=== PATIENT | male | born 1935 | race Caucasian/White ===

== ENCOUNTER 2016-07-19 16:50 | Inpatient (IN) | payer MEDICARE ==
[2016-07-19] VITALS (7 sets, daily range): BP systolic 160–172; BP diastolic 71–80; PULSE 58–95; RESP 18–20; TEMP 97.8; O2SAT 93–97
[~2016-07-19 16:50] MED LIST: ACET325 PO; ARIC5TAB PO; ASPI1TAB7 PO; ATOR40TA49 PO; HYDR-2768 PO; LORA0.5T PO; METO25TA6 PO; MIRTA15 PO; RAMI5CAP36 PO; RISP1TAB2 PO
--- NOTE | 2016-07-19 16:55 | PD ---
HPI Chief Complaint: fall, hip pain Time Seen by Provider: 16:55 Travel History International Travel<30 days: No Contact w/Intl Traveler<30days: No Traveled to known affect area: No History of Present Illness HPI 80-year-old male came to the emergency room brought by EMS after sustaining a fall and unable to get up due to right hip pain. He is coming from detention. Patient has underlying dementia and is not a good historian. The history was obtained from EMS. He is awake and complaining of right hip pain. Vital signs were otherwise stable. Patient has his leg and flexed and externally rotated position. He looks uncomfortable. PFSH Past Medical History Narrative Medical List of his past medical, surgical, social and family history was reviewed from the nursing note. Cardiovascular Problems: Yes Cerebrovascular Accident: Yes Dementia: Yes Diminished Hearing: Yes Gastrointestinal Disorders: No Genitourinary: No Hypertension: Yes Neurologic: Yes (AMS, DEMENTIA, METABOLIC ENCEPHALOPATHY) Reproductive: No Respiratory: No Past Surgical History Other Surgery: Yes Social History Alcohol Use: No Tobacco Use: No Substance Use: No Allergies-Medications (Allergen,Severity, Reaction): Coded Allergies: No Known Allergies (Unverified , 07/19/16) Comments No known drug allergies. Reported Meds & Prescriptions Reported Meds & Active Scripts Active Reported Tylenol 8 Hour Arthritis (Acetaminophen) 650 Mg Tab 650 Mg PO Q4HR Risperidone 0.5 Mg Tab 0.5 Mg PO Q12HR Ramipril 5 Mg Cap 5 Mg PO DAILY Mirtazapine 15 Mg Tab 15 Mg PO HS Metoprolol Tartrate 25 Mg Tab 25 Mg PO DAILY Hydrochlorothiazide 25 Mg Tab 25 Mg PO DAILY Atorvastatin (Atorvastatin Calcium) 40 Mg Tab 40 Mg PO HS Ativan (Lorazepam) 0.5 Mg Tab 0.5 Mg PO DAILY PRN Lorazepam 0.5 Mg Tab 0.5 Mg PO DAILY PRN Aspirin 81 (Aspirin) 81 Mg Tabdr 81 Mg PO DAILY Meclizine (Meclizine HCl) 25 Mg Chew 25 Mg CHEW DIRECTED PRN Narrative Medication List of his home medications reviewed from the nursing note. Review of Systems Except as stated in HPI: all other systems reviewed are Neg Physical Exam Narrative GENERAL: Awake, alert, elderly, dementia, tearful and distressed SKIN: Warm and dry. HEAD: Atraumatic. Normocephalic. EYES: Pupils equal and round. No scleral icterus. No injection or drainage. ENT: No nasal bleeding or discharge. Mucous membranes pink and moist. NECK: Trachea midline. No JVD. CARDIOVASCULAR: Regular rate and rhythm. No murmur appreciated. RESPIRATORY: No accessory muscle use. Clear to auscultation. Breath sounds equal bilaterally. GASTROINTESTINAL: Abdomen soft, non-tender, nondistended. Hepatic and splenic margins not palpable. MUSCULOSKELETAL: Right leg flexed and externally rotated. Patient is refusing to straighten his knee. Distal pulses present. No clubbing. No cyanosis. No edema. NEUROLOGICAL: Awake and alert. No obvious cranial nerve deficits. Motor grossly within normal limits. Normal speech. PSYCHIATRIC: Appropriate mood and affect; insight and judgment normal. Data Data Last Documented VS Orders Electrocardiogram (07/19/16 16:55) Basic Metabolic Panel (Bmp) (07/19/16 16:55) Complete Blood Count With Diff (07/19/16 16:55) Prothrombin Time / Inr (Pt) (07/19/16 16:55) Chest, Single Ap (07/19/16 16:55) Ecg Monitoring (07/19/16 16:55) Bilateral Bp Monitoring (07/19/16 16:55) Iv Access Insert/Monitor (07/19/16 16:55) Oximetry (07/19/16 16:55) Oxygen Administration (07/19/16 16:55) Sodium Chloride 0.9% Flush (Ns Flush) (07/19/16 17:00) Hip, Uni(Ap&Lat) Wo Ap Pelvis (07/19/16 ) Morphine Inj (Morphine Inj) (07/19/16 17:00) Ondansetron Inj (Zofran Inj) (07/19/16 17:00) Knee, Ltd (1 Or 2vws) (07/19/16 ) Morphine Inj (Morphine Inj) (07/19/16 18:00) Admit Order (Ed Use Only) (07/19/16 18:13) Labs MDM Medical Decision Making Medical Screen Exam Complete: Yes Emergency Medical Condition: Yes Medical Record Reviewed: Yes Interpretation(s) Twelve-lead EKG was reviewed by me. Sinus rhythm, normal axis, nonspecific ST- T wave changes. Heart rate of 65 bpm. Differential Diagnosis Hip fracture, knee fracture, hip dislocation Narrative Course 5:20 PM awaiting for the x-ray and the blood test. I have ordered pain medications. 6 PM x-ray of the hip shows femoral neck fracture. I put a call out for the orthopedist as well as hospitalist for admission. Patient has been remedicated for pain. 6:20 PM spoke with the orthopedist. He wants patient to be NPO After midnight and in Patel's traction. Urine analysis has been ordered. Procedures EKG Prior to Arrival: No Physician Communication Physician Communication Dr. Mcnally Diagnosis Primary Impression: Fracture of femoral neck, closed Qualified Code: S72.001A - Closed fracture of neck of right femur, initial encounter Additional Impressions: Fall Qualified Code: W19.XXXA - Fall, initial encounter Dementia Qualified Code: F03.90 - Dementia without behavioral disturbance, unspecified dementia type Admitting Information Admitting Physician Requests: Admit Scripts Oxycodone-Acetaminophen 5-325 mg Tab1 Tab PO Q6H PRN (PAIN SCALE 5 TO 10) #50 TAB Prov:Srikanth Mcnally MD 07/20/16 Enoxaparin Inj (Lovenox Inj)40 Mg/0.4 Ml Syr40 Mg SQ Q24H #25 INJECTION Prov:Srikanth Mcnally MD 07/20/16 Brandee Spaulding MD Jul 19, 2016 16:55 Lymphocytes # (Auto) 1.2 TH/MM3 Monocytes # (Auto) 0.5 TH/MM3 Eosinophils # (Auto) 0.2 TH/MM3 Basophils # (Auto) 0.0 TH/MM3 CBC Comment DIFF FINAL Differential Comment Sodium Level 140 MEQ/L Potassium Level 4.0 MEQ/L Chloride Level 102 MEQ/L Carbon Dioxide Level 32.0 MEQ/L Anion Gap 6 MEQ/L Blood Urea Nitrogen 16 MG/DL Creatinine 1.01 MG/DL Estimat Glomerular Filtration 71 ML/MIN Rate Random Glucose 90 MG/DL Calcium Level 7.8 MG/DL [facility] Medical Decision Making Medical Screen Exam Complete: Yes Emergency Medical Condition: Yes Medical Record Reviewed: Yes Interpretation(s) Twelve-lead EKG was reviewed by me. Sinus rhythm, normal axis, nonspecific ST- T wave changes. Heart rate of 65 bpm. Differential Diagnosis Hip fracture, knee fracture, hip dislocation Narrative Course 5:20 PM awaiting for the x-ray and the blood test. I have ordered pain medications. 6 PM x-ray of the hip shows femoral neck fracture. I put a call out for the orthopedist as well as hospitalist for admission. Patient has been remedicated for pain. 6:20 PM spoke with the orthopedist. He wants an. After midnight in Patel's traction. Urine analysis has been ordered. Procedures EKG Prior to Arrival: No Physician Communication Physician Communication Dr. Mcnally Diagnosis Primary Impression: Fracture of femoral neck, closed Qualified Code: S72.001A - Closed fracture of neck of right femur, initial encounter Additional Impressions: Fall Qualified Code: W19.XXXA - Fall, initial encounter Dementia Qualified Code: F03.90 - Dementia without behavioral disturbance, unspecified dementia type Admitting Information Admitting Physician Requests: Admit Brandee Spaulding MD Jul 19, 2016 16:55
[2016-07-19] MEDS ORDERED: ONDANSETRON HCL 4 MG/2 ML VIAL IV PUSH ONE (17:00)
[2016-07-19] MEDS ORDERED: SODIUM CHLORIDE 0.9% FLUSH 10 ML FLUSH IVF PRN (17:00)
[2016-07-19] MEDS ORDERED: MORPHINE SULFATE 4 MG/ML INJ IV PUSH ONE ×2 (17:00→18:00)
[2016-07-19 17:22] LABS: AUTOMATED NEUTROPHIL # 3.2 TH/MM3 (1.8-7.7); BASOPHIL % 0.8 % (0.0-2.0); EOSINOPHIL # 0.2 TH/MM3 (0-0.4); EOSINOPHIL % 4.5 % (0.0-4.0); HEMATOCRIT 41.5 % (39.0-51.0); HEMO FLAGS DIFF FINAL; LYMPH % 22.4 % (9.0-44.0); LYMPHOCYTE # 1.2 TH/MM3 (1.0-4.8); MEAN CELL VOLUME 88.8 FL (80.0-100.0); MEAN CORPUSCULAR HEMOGLOBIN 31.2 PG (27.0-34.0); MEAN CORPUSCULAR HGB CONC 35.1 % (32.0-36.0); MONO % 10.4 % (0.0-8.0); NEUT % 61.9 % (16.0-70.0); PLATELET COUNT 183 TH/MM3 (150-450); RED BLOOD COUNT 4.67 MIL/MM3 (4.50-5.90); RED CELL DISTRIBUTION WIDTH 13.2 % (11.6-17.2); WHITE BLOOD COUNT 5.2 TH/MM3 (4.0-11.0)
--- NOTE | 2016-07-19 17:36 | RADRPT ---
EXAM DATE/TIME: 07/19/2016 17:17 [facility] COMPARISON: CHEST SINGLE AP, July 31, 2015, 14:11. INDICATIONS : Chest pain after fall. MEDICAL HISTORY : None. SURGICAL HISTORY : None. ENCOUNTER: Initial ACUITY: 1 day PAIN SCORE: 2/10 LOCATION: Bilateral chest FINDINGS: A single view of the chest demonstrates the lungs to be symmetrically, but under aerated without evid ence of mass, infiltrate or effusion. The cardiomediastinal contours are unremarkable. Osseous stru ctures are intact. Loss of the left acromiohumeral interval is characteristic of a chronic rotator cu ff injury. CONCLUSION: 1. Hypoinflation with no acute cardiac pulmonary process. 2. Probable chronic rotator cuff injury on the left. Ab Alvarado MD on July 19, 2016 at 17:33 Board Certified Radiologist. This report was verified electronically.
--- NOTE | 2016-07-19 17:37 | RADRPT ---
EXAM DATE/TIME: 07/19/2016 17:20 [facility] COMPARISON: No previous studies available for comparison. INDICATIONS : Right knee pain after fall. MEDICAL HISTORY : dementia. SURGICAL HISTORY : None. ENCOUNTER: Initial ACUITY: 1 day PAIN SCORE: 9/10 LOCATION: Right knee. FINDINGS: Two view examination of the right knee demonstrates no evidence of fracture or dislocation. Bony min eralization is normal. The suprapatellar soft tissues have a normal configuration. Mild osteoarthrit ic changes. CONCLUSION: Mild osteoarthritic changes with no acute fracture or effusion. Ab Alvarado MD on July 19, 2016 at 17:35 Board Certified Radiologist. This report was verified electronically.
--- NOTE | 2016-07-19 17:42 | RADRPT ---
EXAM DATE/TIME: 07/19/2016 17:20 [facility] COMPARISON: No previous studies available for comparison. INDICATIONS : Right hip pain after fall. MEDICAL HISTORY : dementia. SURGICAL HISTORY : None. ENCOUNTER: Initial ACUITY: 1 day PAIN SCORE: 9/10 LOCATION: Right hip. FINDINGS: There is an oblique lucency involving the basicervical portion of the right femoral neck. A fracture is not excluded. CT might be obtained for definitive assessment if clinically indicated. CONCLUSION: Abnormal exam appearance Jackson Obrien MD on July 19, 2016 at 17:38 Board Certified Radiologist. This report was verified electronically.
[2016-07-19] MEDS ORDERED: TYLE650T9 PO (18:01)
[2016-07-19] MEDS ORDERED: RAMI5CAP PO (18:01)
[2016-07-19] MEDS ORDERED: RISP0.5T2 PO (18:01)
[2016-07-19] MEDS ORDERED: MIRTA15 PO (18:01)
[2016-07-19] MEDS ORDERED: ATOR40TA16 PO (18:01)
[2016-07-19] MEDS ORDERED: HYDR25TA5 PO (18:01)
[2016-07-19] MEDS ORDERED: ASPI-110 PO (18:01)
[2016-07-19] MEDS ORDERED: METO25TA3 PO (18:01)
[2016-07-19] MEDS ORDERED: LORA-392 PO (18:01)
[2016-07-19] MEDS ORDERED: MECL25CH CHEW (18:01)
[2016-07-19] MEDS ORDERED: LORA-373 PO (18:01)
[2016-07-19] MEDS ORDERED: SODIUM CHLORIDE 0.9% FLUSH 10 ML FLUSH IV FLUSH PRN (18:30)
[2016-07-19] MEDS ORDERED: NALOXONE HCL 0.4 MG/ML AMP IV PRN (18:30)
[2016-07-19] MEDS ORDERED: ACETAMINOPHEN 325 MG TAB PO PRN (18:30)
[2016-07-19] MEDS ORDERED: HYDROmorphone HCL PF 1 MG/ML VIAL IV PUSH PRN (19:00)
[2016-07-19] MEDS: SODIUM CHLOR 0.9% 1000 ML INJ 1,000 ML IV SCH (19:11)
[2016-07-19] MEDS: oxyCODONE/ACETAMINOPHEN 5 MG/325 MG TAB PO PRN (19:12)
[2016-07-19 19:17] LABS: BLOOD, URINE NEG (NEG); GLUCOSE,URINE NEG (NEG); KETONE, URINE NEG (NEG); NITRITE,URINE NEG (NEG); URINE COLOR LIGHT-YELLOW (YELLW/STRAW)
[2016-07-19 19:18] LABS: COMMENT (UR) CATH-CULT NOT IND; CULTURE IF INDICATED CATH CULTURE NOT IND
[2016-07-19] MEDS ORDERED: HYDROmorphone HCL PF 1 MG/ML VIAL IV PUSH ONE (20:00)
[2016-07-19] MEDS ORDERED: ENOXAPARIN SODIUM 40 MG/0.4 ML SYRINGE SQ SCH (20:00)
[2016-07-19] MEDS: SODIUM CHLORIDE 0.9% FLUSH 10 ML FLUSH IV FLUSH SCH (20:17)
[2016-07-19] MEDS ORDERED: risperiDONE 0.5 MG TAB PO ONE (21:00)
[2016-07-19] MEDS ORDERED: LORazepam 2 MG/ML VIAL IV PUSH ONE (21:00)
[2016-07-19] MEDS ORDERED: MAGNESIUM HYDROXIDE SUSP 30 ML CUP PO PRN (21:00)
[2016-07-20 01:00] VITALS: BP 158/68; PULSE 68; RESP 18; O2SAT 94
[2016-07-20 05:00] VITALS: BP 161/67; PULSE 70; RESP 18; O2SAT 94
[2016-07-20] MEDS: oxyCODONE/ACETAMINOPHEN 5 MG/325 MG TAB PO PRN (05:00)
[2016-07-20] MEDS: SODIUM CHLOR 0.9% 1000 ML INJ 1,000 ML IV SCH (05:28)
[2016-07-20 07:06] VITALS: BP 124/60; PULSE 68; RESP 18; O2SAT 94
--- NOTE | 2016-07-20 08:00 | HHI.HP ---
History of Present Illness Primary Care Physician Ruddy Hubbard MD Admission Diagnosis femoral neck fracture, fall, dementia Diagnoses: (1) Ischemic Stroke (2) Impaired cognition (3) Impaired mobility and activities of daily living (4) Hypertension (5) DVT prophylaxis (6) Fall (7) Fracture of femoral neck, closed (8) Dementia History of Present Illness 80 Y CM. S/P FALL AT [facility]. PT CONFUSED AND UNABLE TO PROVIDE INFO. PT W OBVIOUS HIP DEFORMITY. FOUND W HIP FX BELOW. PLACED IN BUCKS TXN. SEEN BY FRANCINE YET THEY THEN CALLED ME FOR ADMIT PT OF MINE. D/W [facility]. PT IN [place] AND AGITATED BUT OVERALL AT BASELINE MENTATION. Review of Systems ROS Limitations: Clinical Condition, Altered Mental Status, Hearing Impaired, Poor Historian Past Family Social History Allergies: Coded Allergies: No Known Allergies (Unverified , 07/19/16) Past Medical History Past Medical History Narrative Medical Most of his past medical, surgical, social and family history was reviewed from the nursing note. Cardiovascular Problems: Yes Cerebrovascular Accident: Yes Dementia: Yes Diminished Hearing: Yes Gastrointestinal Disorders: No Genitourinary: No Hypertension: Yes Neurologic: Yes (AMS, DEMENTIA, METABOLIC ENCEPHALOPATHY) Reproductive: No Respiratory: No Past Surgical History Other Surgery: Yes Social History Alcohol Use: No Tobacco Use: No Substance Use: No Allergies-Medications Allergies-Medications (Allergen,Severity, Reaction): Coded Allergies: No Known Allergies (Unverified , 07/19/16) Comments No known drug allergies. Reported Meds & Prescriptions Reported Meds & Active Scripts Active Reported Tylenol 8 Hour Arthritis (Acetaminophen) 650 Mg Tab 650 Mg PO Q4HR Risperidone 0.5 Mg Tab 0.5 Mg PO Q12HR Ramipril 5 Mg Cap 5 Mg PO DAILY Mirtazapine 15 Mg Tab 15 Mg PO HS Metoprolol Tartrate 25 Mg Tab 25 Mg PO DAILY Hydrochlorothiazide 25 Mg Tab 25 Mg PO DAILY Atorvastatin (Atorvastatin Calcium) 40 Mg Tab 40 Mg PO HS Ativan (Lorazepam) 0.5 Mg Tab 0.5 Mg PO DAILY PRN Lorazepam 0.5 Mg Tab 0.5 Mg PO DAILY PRN Aspirin 81 (Aspirin) 81 Mg Tabdr 81 Mg PO DAILY Meclizine (Meclizine HCl) 25 Mg Chew 25 Mg CHEW DIRECTED PRN Active Ordered Medications Current Medications Medications (Trade) Dose Ordered Sig/Taty Route Start Time Stop Time Status Last Admin Sodium Chloride 2 ml 2 ml UNSCH PRN IVF 07/19/16 17:00 (NS 1000 ml Inj) 1,000 ml @ 100 mls/hr Q10H IV 07/19/16 18:22 07/20/16 05:28 (NS Flush) 2 ml BID IV FLUSH 07/19/16 21:00 (Tylenol) 650 mg Q4H PRN PO 07/19/16 18:30 (Milk Of Magnesia Liq) 30 ml Q12HR PRN PO 07/19/16 21:00 (Lovenox Inj) 40 mg Q24H SQ 07/19/16 20:00 07/19/16 20:16 (Narcan Inj) 0.4 mg UNSCH PRN IV 07/19/16 18:30 (Percocet 5-325 Mg) 1 tab Q6H PRN PO 07/19/16 20:00 07/20/16 05:00 (Dilaudid Pf Inj) 0.2 mg Q4H PRN IV PUSH 07/19/16 19:00 Physical Exam Vital Signs Vital Signs Date Time Temp Pulse Resp B/P Pulse Ox O2 Delivery O2 Flow Rate FiO2 07/20/16 07:06 68 18 124/60 94 Room Air 07/20/16 05:00 70 18 161/67 94 Room Air 07/20/16 01:00 68 18 158/68 94 Room Air 07/19/16 21:00 71 18 168/71 93 Room Air 07/19/16 19:28 95 18 172/77 96 Room Air 07/19/16 18:54 18 07/19/16 18:49 58 18 160/78 97 Room Air 07/19/16 18:39 97 21 07/19/16 18:08 64 18 160/78 97 Room Air 164/80 07/19/16 17:51 18 07/19/16 17:25 97.8 62 20 163/75 97 Room Air 07/19/16 17:25 97 Room Air 07/19/16 17:25 62 20 97 Room Air 07/19/16 17:15 97.8 62 18 163/75 97 Room Air Physical Exam GENERAL: This is a well-nourished, well-developed patient, in no apparent distress. SKIN: No rashes, ecchymoses or lesions. Cool and dry. HEAD: Atraumatic. Normocephalic. No temporal or scalp tenderness. EYES: Pupils equal round and reactive. Extraocular motions intact. No scleral icterus. No injection or drainage. ENT: Nose without bleeding, purulent drainage or septal hematoma. Throat without erythema, tonsillar hypertrophy or exudate. Uvula midline. Airway patent. NECK: Trachea midline. No JVD or lymphadenopathy. Supple, nontender, no meningeal signs. CARDIOVASCULAR: Regular rate and rhythm without murmurs, gallops, or rubs. RESPIRATORY: Clear to auscultation. Breath sounds equal bilaterally. No wheezes , rales, or rhonchi. GASTROINTESTINAL: Abdomen soft, non-tender, nondistended. No hepato-splenomegaly , or palpable masses. No guarding. MUSCULOSKELETAL: Extremities without clubbing, cyanosis, or edema. No joint tenderness, effusion, or edema noted. No calf tenderness. Negative Homans sign bilaterally. NEUROLOGICAL: Awake and alert. Cranial nerves II through XII intact. Motor and sensory grossly within normal limits. Five out of 5 muscle strength in all muscle groups. Normal speech. Laboratory Laboratory Tests Test 07/19/16 07/19/16 17:00 18:40 White Blood Count 5.2 Red Blood Count 4.67 Hemoglobin 14.6 Hematocrit 41.5 Mean Corpuscular Volume 88.8 Mean Corpuscular Hemoglobin 31.2 Mean Corpuscular Hemoglobin 35.1 Concent Red Cell Distribution Width 13.2 Platelet Count 183 Mean Platelet Volume 7.6 Neutrophils (%) (Auto) 61.9 Lymphocytes (%) (Auto) 22.4 Monocytes (%) (Auto) 10.4 Eosinophils (%) (Auto) 4.5 Basophils (%) (Auto) 0.8 Neutrophils # (Auto) 3.2 Lymphocytes # (Auto) 1.2 Monocytes # (Auto) 0.5 Eosinophils # (Auto) 0.2 Basophils # (Auto) 0.0 CBC Comment DIFF FINAL Differential Comment Prothrombin Time 11.0 Prothromb Time International 1.0 Ratio Sodium Level 140 Potassium Level 4.0 Chloride Level 102 Carbon Dioxide Level 32.0 Anion Gap 6 Blood Urea Nitrogen 16 Creatinine 1.01 Estimat Glomerular Filtration 71 Rate Random Glucose 90 Calcium Level 7.8 Urine Color LIGHT-YELLOW Urine Turbidity CLEAR Urine pH 7.0 Urine Specific [place] 1.005 Urine Protein NEG Urine Glucose (UA) NEG Urine Ketones NEG Urine Occult Blood NEG Urine Nitrite NEG Urine Bilirubin NEG Urine Urobilinogen LESS THAN 2.0 Urine Leukocyte Esterase NEG Urine RBC LESS THAN 1 Urine WBC LESS THAN 1 Microscopic Urinalysis Comment CATH-CULT NOT IND Result Diagram: 07/19/16 1700 07/19/16 1700 Imaging Last 72 hours Impressions Chest X-Ray 07/19/16 1655 Signed Impressions: Service Date/Time: Tuesday, July 19, 2016 17:17 - CONCLUSION: 1. Hypoinflation with no acute cardiac pulmonary process. 2. Probable chronic rotator cuff injury on the left. Ab Alvarado MD Knee X-Ray 07/19/16 0000 Signed Impressions: Service Date/Time: Tuesday, July 19, 2016 17:20 - CONCLUSION: Mild osteoarthritic changes with no acute fracture or effusion. Ab Alvarado MD Hip X-Ray 07/19/16 0000 Signed Impressions: Service Date/Time: Tuesday, July 19, 2016 17:20 - CONCLUSION: Abnormal exam appearance Jackson Obrien MD Assessment and Plan Problem List: (1) Fracture of femoral neck, closed Status: Acute (2) DVT prophylaxis Status: Resolved (3) Fall Status: Acute (4) Ischemic Stroke Status: Acute (5) Impaired cognition Status: Acute (6) Impaired mobility and activities of daily living Status: Acute (7) Hypertension Status: Chronic (8) Dementia Status: Acute Assessment and Plan PATIENT IS MEDICALLY CLEARED FOR SURGERY IVF LOVENOX PT NPO DISPO: BACK TO SNF INPT ADMIT FOR THE ABOVE. EXPECT 3 D INPT STAY THEN TO SNF. Problem Qualifiers (1) Fall: Qualified Code: W19.XXXA - Fall, initial encounter (2) Fracture of femoral neck, closed: Qualified Code: S72.001A - Closed fracture of neck of right femur, initial encounter (3) Dementia: Qualified Code: F03.90 - Dementia without behavioral disturbance, unspecified dementia type Ruddy Hubbard MD Jul 20, 2016 08:00
[2016-07-20] MEDS: SODIUM CHLORIDE 0.9% FLUSH 10 ML FLUSH IV FLUSH SCH (09:00)
[2016-07-20 10:41] VITALS: BP 139/77; PULSE 67; RESP 18; O2SAT 96
[2016-07-20] MEDS ORDERED: ONDANSETRON HCL 4 MG/2 ML VIAL IV PUSH ONE (12:38)
[2016-07-20] MEDS ORDERED: ePHEDrine/NS 25 MG/5 ML SYR IV ONE (12:38)
[2016-07-20] MEDS ORDERED: PROPOFOL 200 MG/20 ML AMP IV ONE (12:38)
[2016-07-20] MEDS ORDERED: ACETAMINOPHEN 1000 MG/100 ML VIAL IV ONE (13:04)
[2016-07-20] MEDS ORDERED: MIDAZOLAM HCL 2 MG/2 ML VIAL ONE ×2 (13:04→17:51)
[2016-07-20] MEDS ORDERED: GENTAMICIN SULFATE 80 MG/2 ML VIAL ONE (13:44)
[2016-07-20] MEDS ORDERED: ceFAZolin 2 GM PREMIX 50 ML ONE (13:44)
[2016-07-20] MEDS ORDERED: ENOX40P SQ (14:28)
[2016-07-20] MEDS ORDERED: OXYC1TAB63 PO (14:28)
[2016-07-20] MEDS ORDERED: Post-op Orders (for Pharmacy) MISC XX ONE (14:30)
[2016-07-20] MEDS ORDERED: TEMAZEPAM 15 MG CAP PO PRN (14:30)
[2016-07-20] MEDS ORDERED: SODIUM CHLORIDE 0.9% FLUSH 5 ML FLUSH IVF PRN (14:30)
[2016-07-20] MEDS ORDERED: MISCELLANEOUS PHARMACY INFORMATION XX ONE (14:30)
[2016-07-20] MEDS ORDERED: ONDANSETRON HCL 4 MG/2 ML VIAL IVP PRN (14:30)
[2016-07-20] MEDS ORDERED: ALUMINUM/MAGNESIUM/SIMETH 30 ML CUP PO PRN (14:30)
[2016-07-20] MEDS ORDERED: MISCELLANEOUS NURSING INFORMATION XX PRN (14:30)
--- NOTE | 2016-07-20 14:34 | EKG ---
Date Performed: 07/19/2016 Time Performed: 18:35:00 PTAGE: 80 years EKG: Sinus rhythm NORMAL ECG Compared to prior tracing no significant change PREVIOUS TRACING : 07/31/2015 13.50 DOCTOR: Parker Allen Interpretating Date/Time 07/20/2016 14:33:09
--- NOTE | 2016-07-20 15:03 | PD.OP ---
cc: Srikanth Mcnally MD Operative Report Date of Surgery: Jul 20, 2016 Preoperative Diagnosis: Right femoral neck fracture Postoperative Diagnosis: Same Procedure: Open treatment internal fixation right femoral neck fracture with multiple screws Anesthesia: Gen. Surgeon: Srikanth Mcnally Station Mechanic Apprentice(s): HAI Grant Operation and Findings: EBL: 50 cc INDICATION: Patient is a 80-year-old male who fell sustaining a right femoral neck fracture. He presents for surgical treatment NOTE: Cristian Grant PA-C was present for the entire surgical procedure as my embroidery assistant. In my medical opinion her skill and care was necessary for proper management of this patient PROCEDURE: The patient was brought to the operating room and anesthetized in the supine position. He was placed on the fracture table with the right leg held extended. The opposite leg was in the well leg sawyer. The hip fracture was reduced anatomically. The hip and leg was scrubbed with alcohol followed by Hibiclens followed by ChloraPrep. A timeout was done and antibiotics were given within 1 hour time window. A longitudinal incision was made over the lateral aspect of the hip. This is carried down through skin and subcutaneous tissue. The fascia was opened longitudinally. Deep retractors allowed good visualization. Multiple guide pins were placed across the proximal femur across the neck of the femur. These were placed within the proper position in a parallel fashion into the femoral head. Overall alignment was satisfactory. Reduction was near anatomic. Each pin was measured and then the outer cortex drilled. Proper length 7.3mm Synthes screws were advanced across the cannulated device and into the femoral head. Each screw had good position. Intraoperative x-rays were obtained. Alignment was satisfactory. No complication was noted. The wound was irrigated copiously. Hemostasis was controlled. The fascia was closed with interrupted Vicryl suture, subcutaneous tissue 2-0 Vicryl suture, skin with running intradermal 3-0 Vicryl followed by Steri-Strips and benzoin. A sterile dressing was applied The patient was awakened and taken to the recovery room in satisfactory condition. FINDINGS: There was evidence of a mildly unstable femoral neck fracture. Final fixation was excellent. No complication was appreciated. Srikanth Mcnally MD Jul 20, 2016 15:03
[2016-07-20] MEDS ORDERED: *MEPERIDINE 25 MG INJ VIAL PERIprocedural Use ONLY ONE (15:20)
[2016-07-20] MEDS: LACTATED RINGER'S 1000 ML INJ 1,000 ML IV SCH (15:38)
[2016-07-20] MEDS ORDERED: DO NOT ADM ANY ANTICOAGULANT DRUGS XX PRN (15:45)
--- NOTE | 2016-07-20 16:38 | RADRPT ---
EXAM DATE/TIME: 07/20/2016 14:46 [facility] COMPARISON: FLUOROSCOPY PORTABLE UP TO 1HR, July 20, 2016, 0:00. INDICATIONS : Screw placement right hip. MEDICAL HISTORY : Fracture right femoral neck. SURGICAL HISTORY : None. ENCOUNTER: Initial ACUITY: 1 day PAIN SCORE: Non-responsive. LOCATION: Right Hip. FINDINGS: Intraoperative examination demonstrates placement of 4 partially threaded screws across the right fem oral neck fracture. Alignment of the fracture is good. CONCLUSION: 1. Good alignment of the hip fracture post fixation. Sotero Caal MD on July 20, 2016 at 16:35 Board Certified Radiologist. This report was verified electronically.
[2016-07-20] MEDS ORDERED: LORazepam 2 MG/ML VIAL ONE (17:38)
[2016-07-20] MEDS ORDERED: LORazepam 2 MG/ML VIAL IV ONE ×2 (17:40→18:00)
[2016-07-20] MEDS ORDERED: MIDAZOLAM HCL 2 MG/2 ML VIAL IV ONE (18:00)
[2016-07-20] MEDS ORDERED: HALOPERIDOL LACTATE 5 MG/ML AMP ONE (18:31)
[2016-07-20] MEDS: HALOPERIDOL LACTATE 5 MG/ML AMP IV PRN (18:32)
[2016-07-20] MEDS ORDERED: METOPROLOL TARTRATE 5 MG/5 ML VIAL ONE ×2 (18:45→19:31)
--- NOTE | 2016-07-20 19:18 | MB ---
cc: OSVALDO CONLEY MD DATE OF CONSULTATION 07/20/[address] Hubbard REASON FOR CONSULTATION Fracture of the right hip. HISTORY OF PRESENT ILLNESS This patient is a 80-year-old white male with a history of dimension. The patient apparently fell. He had obvious deformity of his right hip and was brought into the emergency room and found that he had evidence of a hip fracture. He was seen in the emergency room, evaluated and treated. I have been asked see him in consultation regarding the same. PAST MEDICAL HISTORY 1. Ischemic stroke, 2. Impaired cognition, 3. Dementia, 4. Impaired mobility, 5. Hypertension, 6. Cardiovascular disease, 7. Cerebrovascular accident, 8. Dementia, 9. Diminished hearing, 10. Hypertension. REVIEW OF SYSTEMS Hearing impaired, poor historian, altered mentation and clinical deconditioning FAMILY HISTORY AND SOCIAL HISTORY, ALLERGIES None that are noted PAST SURGICAL HISTORY None that are listed MEDICATIONS 1. Acetaminophen 2. Risperidone 3. Ramipril 4. Mirtazapine 5. Metoprolol 6. Hydrochlorothiazide 7. Atorvastatin 8. Ativan 9. Lorazepam. 10. Aspirin. 11. Meclizine. PHYSICAL EXAMINATION GENERAL: Pleasant cooperative white male. He is confused. HEENT: Normocephalic, atraumatic. Pupils equal, round, reactive to light and accommodation. Extraocular motions intact. NECK: Supple. CHEST: Clear. HEART: Regular rate rhythm. ABDOMEN: Soft, nontender, normoactive bowel sounds. MUSCULOSKELETAL: Right hip is externally rotated. Mild shortening is seen. Alignment otherwise satisfactory. He wiggles his toes. Cap refill is satisfactory. Dorsalis pedis 1+. IMAGING STUDIES X-rays reviewed and review of the radiologist's interpretation shows evidence of a base of cervical femoral neck fracture. Mild displacement is seen. IMPRESSION Right base of the neck femoral neck fracture/peritrochanteric hip fracture. PLAN Open treatment internal fixation, possible intramedullary dani versus multiple screws. CONSENT There are risks for surgery including infection, bleeding, loss of motion, continued pain, need for further surgery, neurologic and vascular injury. The patient understands these issues and wishes to press on with surgery as outlined above. Osvaldo Conley MD [facility]/ /3:06 PM /7:00 PM
[2016-07-20] MEDS: MORPHINE SULFATE 8 MG/ML INJ IM PRN (19:38)
[2016-07-20] MEDS: MIRTAZAPINE 15 MG TAB PO SCH (21:00)
[2016-07-20] MEDS: MAGNESIUM HYDROXIDE SUSP 30 ML CUP PO SCH (21:00)
[2016-07-20] MEDS: SODIUM CHLORIDE 0.9% FLUSH 5 ML FLUSH IVF SCH (21:00)
[2016-07-20] MEDS: ATORVASTATIN 40 MG TAB PO SCH (21:00)
[2016-07-20] MEDS: SENNOSIDES 8.6 MG TAB PO SCH (21:00)
[2016-07-20 22:00] VITALS: BP 149/78; PULSE 69; RESP 18; TEMP 96.3; O2SAT 97
[2016-07-21] VITALS (8 sets, daily range): BP systolic 114–167; BP diastolic 61–87; PULSE 66–89; RESP 16–19; TEMP 95.6–99; O2SAT 93–100
[2016-07-21] MEDS: HALOPERIDOL LACTATE 5 MG/ML AMP IV PRN (03:01)
[2016-07-21] MEDS: ENOXAPARIN SODIUM 30 MG/0.3 ML SYRINGE SQ SCH (03:02)
[2016-07-21] MEDS: LACTATED RINGER'S 1000 ML INJ 1,000 ML IV SCH ×2 (03:02→15:24)
[2016-07-21] MEDS: ACETAMINOPHEN/HYDROcodone 325 MG/5 MG TAB PO PRN ×3 (04:42→22:11)
[2016-07-21 05:59] LABS: HEMATOCRIT 37.1 % (39.0-51.0); REVIEW FLAG FINAL
--- NOTE | 2016-07-21 07:50 | PD.ORT.PN ---
Subjective Subjective Remarks No complaints. Confused. Hospital staff and room for his protection Objective Vitals Vital Signs Date Time Temp Pulse Resp B/P Pulse Ox O2 Delivery O2 Flow Rate FiO2 07/21/16 05:35 20 07/21/16 04:19 95.6 73 18 138/68 93 07/21/16 00:28 95.7 70 19 114/61 95 07/20/16 22:00 96.3 69 18 149/78 97 07/20/16 22:00 20 07/20/16 21:00 98.9 71 13 123/67 99 Nasal Cannula 3 07/20/16 20:00 98.7 80 13 106/60 99 Nasal Cannula 3 07/20/16 19:15 110 16 159/87 99 Nasal Cannula 3 07/20/16 19:00 104 18 159/87 99 Nasal Cannula 3 07/20/16 18:30 119 20 99 07/20/16 18:00 124 20 157/78 99 Nasal Cannula 3 07/20/16 17:40 128 22 99 07/20/16 17:00 70 18 143/83 95 Nasal Cannula 3 07/20/16 16:00 55 12 130/74 97 Nasal Cannula 3 07/20/16 15:45 58 12 119/66 97 Nasal Cannula 3 07/20/16 15:30 55 12 129/69 97 Nasal Cannula 3 07/20/16 15:15 64 12 138/69 97 Nasal Cannula 3 07/20/16 15:14 97.5 64 12 137/78 97 Nasal Cannula 3 07/20/16 10:41 67 18 139/77 96 Room Air I/O 07/20/16 07/20/16 07/20/16 07/21/16 07/21/16 07/21/16 07:00 15:00 23:00 07:00 15:00 23:00 Intake Total 920 ml 1309 ml Output Total 40 ml 350 ml Balance 880 ml 959 ml Intake Oral 120 ml 120 ml IV Total 1189 ml Other 800 ml Output Urine Total 0 ml 350 ml Estimated Blood Loss 40 ml # Voids 2 # Bowel Movements 0 0 Result Diagram: 07/21/16 0443 07/19/16 1700 Objective Remarks Dressing is dry. No significant swelling. No calf tenderness. Negative Homans sign. Hemoglobin stable Assessment & Plan Ortho Post Op Day #: 1 Problem List: Assessment and Plan Right femoral neck fracture. ORIF with multiple screws: POD #1. PLAN: Toe-touch weightbearing Discharge to SNF when medically clear, probably Sunday or Sunday. Lovenox. [place] for pain No dressing change Stable orthopedically Srikanth Mcnally MD Jul 21, 2016 07:50
[2016-07-21] MEDS: RAMIPRIL 5 MG CAP PO SCH (08:26)
[2016-07-21] MEDS: ASPIRIN EC 81 MG TABEC PO SCH (08:26)
[2016-07-21] MEDS: HYDROCHLOROTHIAZIDE 25 MG TAB PO SCH (08:27)
[2016-07-21] MEDS: METOPROLOL TARTRATE 25 MG TAB PO SCH (09:00)
[2016-07-21] MEDS: MAGNESIUM HYDROXIDE SUSP 30 ML CUP PO SCH ×2 (09:00→20:10)
[2016-07-21] MEDS: SODIUM CHLORIDE 0.9% FLUSH 5 ML FLUSH IVF SCH ×2 (09:00→20:10)
--- NOTE | 2016-07-21 10:16 | HHI.FPPN ---
Subjective Remarks IN RESTRAINTS CALLED FOR COMBATIVENESS AND STRIKING STAFF SITTER AT BEDSIDE SLEPT MOSTLY HS PT CALM AT THE MOMENT D/W RN Objective Vitals Vital Signs Date Time Temp Pulse Resp B/P Pulse Ox O2 Delivery O2 Flow Rate FiO2 07/21/16 05:35 20 07/21/16 04:19 95.6 73 18 138/68 93 07/21/16 00:28 95.7 70 19 114/61 95 07/20/16 22:00 96.3 69 18 149/78 97 07/20/16 22:00 20 07/20/16 21:00 98.9 71 13 123/67 99 Nasal Cannula 3 07/20/16 20:00 98.7 80 13 106/60 99 Nasal Cannula 3 07/20/16 19:15 110 16 159/87 99 Nasal Cannula 3 07/20/16 19:00 104 18 159/87 99 Nasal Cannula 3 07/20/16 18:30 119 20 99 07/20/16 18:00 124 20 157/78 99 Nasal Cannula 3 07/20/16 17:40 128 22 99 07/20/16 17:00 70 18 143/83 95 Nasal Cannula 3 07/20/16 16:00 55 12 130/74 97 Nasal Cannula 3 07/20/16 15:45 58 12 119/66 97 Nasal Cannula 3 07/20/16 15:30 55 12 129/69 97 Nasal Cannula 3 07/20/16 15:15 64 12 138/69 97 Nasal Cannula 3 07/20/16 15:14 97.5 64 12 137/78 97 Nasal Cannula 3 07/20/16 10:41 67 18 139/77 96 Room Air I/O 07/20/16 07/20/16 07/20/16 07/21/16 07/21/16 07/21/16 07:00 15:00 23:00 07:00 15:00 23:00 Intake Total 920 ml 1309 ml Output Total 40 ml 350 ml Balance 880 ml 959 ml Intake Oral 120 ml 120 ml IV Total 1189 ml Other 800 ml Output Urine Total 0 ml 350 ml Estimated Blood Loss 40 ml # Voids 2 # Bowel Movements 0 0 Result Diagram: 07/21/16 0443 07/19/16 1700 Objective Remarks GENERAL: SKIN: Warm and dry. Incision c/d/i HEAD: Atraumatic. Normocephalic. EYES: Pupils equal and round. No scleral icterus. No injection or drainage. ENT: No nasal bleeding or discharge. Mucous membranes pink and moist. NECK: Trachea midline. No JVD. CARDIOVASCULAR: Regular rate and rhythm. RESPIRATORY: No accessory muscle use. Clear to auscultation. Breath sounds equal bilaterally. GASTROINTESTINAL: Abdomen soft, non-tender, nondistended. Hepatic and splenic margins not palpable. MUSCULOSKELETAL: Extremities without clubbing, cyanosis, or edema. No obvious deformities. NEUROLOGICAL: Awake and alert. No obvious cranial nerve deficits. Motor grossly within normal limits. 3 out of 5 muscle strength in the arms and legs. Normal speech. PSYCHIATRIC: confused, demented, follows simple commands Medications and IVs Current Medications Medications (Trade) Dose Ordered Sig/Taty Route Start Time Stop Time Status Last Admin (Tylenol) 650 mg Q4H PRN PO 07/19/16 18:30 (Narcan Inj) 0.4 mg UNSCH PRN IV 07/19/16 18:30 (Dilaudid Pf Inj) 0.2 mg Q4H PRN IV PUSH 07/19/16 19:00 07/20/16 09:49 (Ecotrin Ec) 81 mg DAILY PO 07/21/16 09:00 07/21/16 08:26 (Lipitor) 40 mg HS PO 07/20/16 21:00 (Hydrodiuril) 25 mg DAILY PO 07/21/16 09:00 07/21/16 08:27 (Lopressor) 25 mg DAILY PO 07/21/16 09:00 (Remeron) 15 mg HS PO 07/20/16 21:00 Ramipril 5 mg 5 mg DAILY PO 07/21/16 09:00 07/21/16 08:26 (Lr 1000 ml Inj) 1,000 ml @ 80 mls/hr [id number] IV 07/20/16 14:24 07/21/16 03:02 (NS Flush) 2 ml UNSCH PRN IVF 07/20/16 14:30 (NS Flush) 2 ml BID IVF 07/20/16 21:00 07/20/16 21:00 (Lovenox Inj) 30 mg Q24H SQ 07/21/16 03:00 07/21/16 03:02 Miscellaneous Information UNSCH PRN XX 07/20/16 14:30 (Morphine Inj) 5 mg Q3H PRN IM 07/20/16 14:30 07/20/16 19:38 ([place] 5-325 Mg) 1 tab Q4H PRN PO 07/20/16 14:30 ([place] 5-325 Mg) 2 tab Q4H PRN PO 07/20/16 14:30 07/21/16 04:42 (Zofran Inj) 4 mg Q6H PRN IVP 07/20/16 14:30 (Mag-Al Plus Susp Liq) 30 ml Q6H PRN PO 07/20/16 14:30 (Restoril) 15 mg HS PRN PO 07/20/16 14:30 (Milk Of Magnesia Liq) 30 ml BID PO 07/20/16 21:00 (Senokot) 17.2 mg HS PO 07/20/16 21:00 Miscellaneous Information ALL NURSING DEPARTME... UNSCH PRN XX 07/20/16 15:45 07/21/16 15:44 (Haldol Inj) 3 mg Q6H PRN IV 07/20/16 19:00 07/21/16 03:01 A/P Problem List: (1) Fracture of femoral neck, closed Status: Acute Plan: lovenox qd 3008 and narcotic RX in chart and ready for dc to SNF. Stop restraints and continue sitter and hopefully dc to SNF tomorrow if stable. (2) Dementia Status: Acute (3) Hypertension Status: Chronic (4) Fall Status: Acute (5) Impaired cognition Status: Acute (6) DVT prophylaxis Status: Chronic (7) Impaired mobility and activities of daily living Status: Acute (8) Ischemic Stroke Status: Acute Problem Qualifiers (1) Fracture of femoral neck, closed: Qualified Code: S72.001A - Closed fracture of neck of right femur, initial encounter (2) Dementia: Qualified Code: F03.90 - Dementia without behavioral disturbance, unspecified dementia type (3) Fall: Qualified Code: W19.XXXA - Fall, initial encounter Ruddy Hubbard MD Jul 21, 2016 10:16
[2016-07-21] MEDS: MORPHINE SULFATE 8 MG/ML INJ IM PRN (14:35)
[2016-07-21] MEDS: MIRTAZAPINE 15 MG TAB PO SCH (20:10)
[2016-07-21] MEDS: SENNOSIDES 8.6 MG TAB PO SCH (20:10)
[2016-07-21] MEDS: ATORVASTATIN 40 MG TAB PO SCH (20:10)
[2016-07-22] VITALS (7 sets, daily range): BP systolic 109–165; BP diastolic 48–76; PULSE 62–83; RESP 16–22; TEMP 97.1–98.7; O2SAT 93–98
[2016-07-22] MEDS: ENOXAPARIN SODIUM 30 MG/0.3 ML SYRINGE SQ SCH (02:37)
[2016-07-22] MEDS: LACTATED RINGER'S 1000 ML INJ 1,000 ML IV SCH ×3 (02:38→23:27)
[2016-07-22] MEDS: ACETAMINOPHEN/HYDROcodone 325 MG/5 MG TAB PO PRN ×4 (02:39→20:35)
[2016-07-22 04:58] LABS: AUTOMATED NEUTROPHIL # 5.2 TH/MM3 (1.8-7.7); BASOPHIL % 0.5 % (0.0-2.0); EOSINOPHIL # 0.5 TH/MM3 (0-0.4); EOSINOPHIL % 6.7 % (0.0-4.0); HEMATOCRIT 34.5 % (39.0-51.0); HEMO FLAGS DIFF FINAL; LYMPH % 12.7 % (9.0-44.0); MEAN CELL VOLUME 89.4 FL (80.0-100.0); MEAN CORPUSCULAR HEMOGLOBIN 30.8 PG (27.0-34.0); MEAN CORPUSCULAR HGB CONC 34.4 % (32.0-36.0); MONO % 9.9 % (0.0-8.0); NEUT % 70.2 % (16.0-70.0); PLATELET COUNT 147 TH/MM3 (150-450); RED BLOOD COUNT 3.86 MIL/MM3 (4.50-5.90); RED CELL DISTRIBUTION WIDTH 13.1 % (11.6-17.2); WHITE BLOOD COUNT 7.5 TH/MM3 (4.0-11.0)
[2016-07-22 05:35] LABS: POTASSIUM 3.2 MEQ/L (3.5-5.1)
--- NOTE | 2016-07-22 07:07 | PD.ORT.PN ---
Subjective Subjective Remarks s/p perc pinning right hip - POD 2 patient in restraints and confused. Objective Vitals Vital Signs Date Time Temp Pulse Resp B/P Pulse Ox O2 Delivery O2 Flow Rate FiO2 07/22/16 00:00 97.2 63 18 113/59 94 07/21/16 21:22 95 Nasal Cannula 3.00 07/21/16 20:00 99.0 75 18 137/65 97 07/21/16 19:17 Nasal Cannula 3.00 07/21/16 16:00 98.0 89 16 167/87 98 07/21/16 12:00 97.0 66 16 123/65 100 07/21/16 10:57 97 Nasal Cannula 3.00 07/21/16 08:00 96.2 70 16 132/72 99 I/O 07/21/16 07/21/16 07/21/16 07/22/16 07/22/16 07/22/16 07:00 15:00 23:00 07:00 15:00 23:00 Intake Total 1309 ml 600 ml 1320 ml 793 ml Output Total 350 ml Balance 959 ml 600 ml 1320 ml 793 ml Intake Oral 120 ml 600 ml 240 ml IV Total 1189 ml 1080 ml 793 ml Output Urine Total 350 ml # Voids 4 2 # Bowel Movements 0 0 0 Result Diagram: 07/22/16 0336 07/22/16 0334 Objective Remarks Dressing is dry. No significant swelling. No calf tenderness. Negative Homans sign. Hemoglobin stable Assessment & Plan Assessment and Plan Right femoral neck fracture. ORIF with multiple screws: POD #2 PLAN: Toe-touch weightbearing Discharge to SNF when medically clear, probably Sunday or Sunday. Lovenox. [place] for pain No dressing change Stable orthopedically Hernando Wilkins Jul 22, 2016 07:07
[2016-07-22] MEDS: METOPROLOL TARTRATE 25 MG TAB PO SCH (09:01)
[2016-07-22] MEDS: RAMIPRIL 5 MG CAP PO SCH (09:01)
[2016-07-22] MEDS: HYDROCHLOROTHIAZIDE 25 MG TAB PO SCH (09:01)
[2016-07-22] MEDS: ASPIRIN EC 81 MG TABEC PO SCH (09:01)
[2016-07-22] MEDS: MAGNESIUM HYDROXIDE SUSP 30 ML CUP PO SCH ×2 (09:01→20:36)
[2016-07-22] MEDS: SODIUM CHLORIDE 0.9% FLUSH 5 ML FLUSH IVF SCH ×2 (09:02→20:36)
--- NOTE | 2016-07-22 11:49 | HHI.PR ---
Subjective Remarks In bed eating breakfast. Says he was not hungry last night and did skip dinner , he is hungry now and is eating well. Pain is controlled by meds. He was noted agitated last night. Objective Vitals Vital Signs Date Time Temp Pulse Resp B/P Pulse Ox O2 Delivery O2 Flow Rate FiO2 07/22/16 08:34 98.7 70 18 126/74 97 07/22/16 04:00 98.1 76 22 109/48 98 07/22/16 00:00 97.2 63 18 113/59 94 07/21/16 21:22 95 Nasal Cannula 3.00 07/21/16 20:00 99.0 75 18 137/65 97 07/21/16 19:17 Nasal Cannula 3.00 07/21/16 16:00 98.0 89 16 167/87 98 07/21/16 12:00 97.0 66 16 123/65 100 I/O 07/21/16 07/21/16 07/21/16 07/22/16 07/22/16 07/22/16 07:00 15:00 23:00 07:00 15:00 23:00 Intake Total 1309 ml 600 ml 1320 ml 943 ml Output Total 350 ml Balance 959 ml 600 ml 1320 ml 943 ml Intake Oral 120 ml 600 ml 240 ml 150 ml IV Total 1189 ml 1080 ml 793 ml Output Urine Total 350 ml # Voids 4 2 2 # Bowel Movements 0 0 0 0 Result Diagram: 07/22/16 0336 07/22/16 0334 Imaging Last Impressions Hip X-Ray 07/20/16 0000 Signed Impressions: Service Date/Time: June 14:46 - CONCLUSION: 1. Good alignment of the hip fracture post fixation. Sotero Caal MD Chest X-Ray 07/19/16 1655 Signed Impressions: Service Date/Time: Tuesday, July 19, 2016 17:17 - CONCLUSION: 1. Hypoinflation with no acute cardiac pulmonary process. 2. Probable chronic rotator cuff injury on the left. Ab Alvarado MD Knee X-Ray 07/19/16 0000 Signed Impressions: Service Date/Time: Tuesday, July 19, 2016 17:20 - CONCLUSION: Mild osteoarthritic changes with no acute fracture or effusion. Ab Alvarado MD Objective Remarks GENERAL: This is a well-nourished, well-developed patient, in no apparent distress. SKIN: No rashes, ecchymoses or lesions. Cool and dry. HEAD: Atraumatic. Normocephalic. No temporal or scalp tenderness. EYES: Pupils equal round and reactive. Extraocular motions intact. No scleral icterus. No injection or drainage. ENT: Nose without bleeding, purulent drainage or septal hematoma. Throat without erythema, tonsillar hypertrophy or exudate. Uvula midline. Airway patent. NECK: Trachea midline. No JVD or lymphadenopathy. Supple, nontender, no meningeal signs. CARDIOVASCULAR: Regular rate and rhythm without murmurs, gallops, or rubs. RESPIRATORY: Clear to auscultation. Breath sounds equal bilaterally. No wheezes , rales, or rhonchi. GASTROINTESTINAL: Abdomen soft, non-tender, nondistended. No hepato-splenomegaly , or palpable masses. No guarding. MUSCULOSKELETAL: Extremities without clubbing, cyanosis, or edema. No joint tenderness, effusion, or edema noted. No calf tenderness. Negative Homans sign bilaterally. NEUROLOGICAL: Awake and alert. Cranial nerves II through XII intact. Motor and sensory grossly within normal limits. Five out of 5 muscle strength in all muscle groups. Normal speech. A/P Assessment and Plan Right femoral neck fracture s/p ORIF with multiple screws 07/20/16 PLAN: Toe-touch weightbearing Discharge to SNF when medically clear, probably Sunday or Sunday. Lovenox. [place] for pain No dressing change Cleared by ortho for DC DISPO: DC to SNF when arrangements done Mariola Lindsay MD Jul 22, 2016 11:49
[2016-07-22] MEDS: MIRTAZAPINE 15 MG TAB PO SCH (20:35)
[2016-07-22] MEDS: ATORVASTATIN 40 MG TAB PO SCH (20:35)
[2016-07-22] MEDS: SENNOSIDES 8.6 MG TAB PO SCH (20:35)
[2016-07-23] VITALS (7 sets, daily range): BP systolic 113–162; BP diastolic 59–80; PULSE 68–99; RESP 19–22; TEMP 95.8–97.6; O2SAT 94–96
[2016-07-23] MEDS: ENOXAPARIN SODIUM 30 MG/0.3 ML SYRINGE SQ SCH (02:54)
[2016-07-23] MEDS: ACETAMINOPHEN/HYDROcodone 325 MG/5 MG TAB PO PRN ×2 (05:26→11:01)
--- NOTE | 2016-07-23 06:39 | PD.ORT.PN ---
Subjective Subjective Remarks s/p perc pinning right hip - POD 3 patient in restraints and confused. states pain in right hip Objective Vitals Vital Signs Date Time Temp Pulse Resp B/P Pulse Ox O2 Delivery O2 Flow Rate FiO2 07/23/16 04:00 97.6 77 20 150/72 94 07/23/16 00:00 97.6 68 22 162/80 94 07/22/16 19:41 97.1 79 22 165/76 94 07/22/16 16:06 97.7 62 16 121/57 94 07/22/16 14:23 93 07/22/16 12:28 98.7 83 18 145/72 97 07/22/16 08:34 98.7 70 18 126/74 97 I/O 07/22/16 07/22/16 07/22/16 07/23/16 07/23/16 07/23/16 07:00 15:00 23:00 07:00 15:00 23:00 Intake Total 943 ml 930 ml 480 ml 240 ml Output Total 1250 ml Balance 943 ml -320 ml 480 ml 240 ml Intake Oral 150 ml 930 ml 480 ml 240 ml IV Total 793 ml Output Urine Total 1250 ml # Voids 2 2 2 # Bowel Movements 0 0 0 Result Diagram: 07/22/16 0336 07/22/16 0334 Objective Remarks Dressing is dry. No significant swelling. No calf tenderness. Negative Homans sign. Hemoglobin stable Assessment & Plan Assessment and Plan Right femoral neck fracture. ORIF with multiple screws: POD #3 PLAN: Toe-touch weightbearing Discharge to SNF when medically clear, probably Sunday or Sunday. Lovenox. [place] for pain No dressing change Stable orthopedically Hernando Wilkins Jul 23, 2016 06:39
[2016-07-23] MEDS: SODIUM CHLORIDE 0.9% FLUSH 5 ML FLUSH IVF SCH ×2 (08:30→19:35)
[2016-07-23] MEDS: MAGNESIUM HYDROXIDE SUSP 30 ML CUP PO SCH ×2 (08:30→19:35)
[2016-07-23] MEDS: METOPROLOL TARTRATE 25 MG TAB PO SCH (08:30)
[2016-07-23] MEDS: HYDROCHLOROTHIAZIDE 25 MG TAB PO SCH (08:30)
[2016-07-23] MEDS: ASPIRIN EC 81 MG TABEC PO SCH (08:30)
[2016-07-23] MEDS: RAMIPRIL 5 MG CAP PO SCH (08:30)
--- NOTE | 2016-07-23 14:27 | HHI.PR ---
Subjective Remarks In bed. Pain is controlled by meds. Says he feels good and he wants to go home. Patient is pleasantly confused. He is also getting more agitated at night time. No fevers or chills. No n/v/d/c. Objective Vitals Vital Signs Date Time Temp Pulse Resp B/P Pulse Ox O2 Delivery O2 Flow Rate FiO2 07/23/16 12:24 96 Nasal Cannula 21 07/23/16 12:00 95.8 82 19 133/72 95 07/23/16 08:00 97.1 68 19 140/72 95 07/23/16 04:00 97.6 77 20 150/72 94 07/23/16 00:00 97.6 68 22 162/80 94 07/22/16 19:41 97.1 79 22 165/76 94 07/22/16 16:06 97.7 62 16 121/57 94 I/O 07/22/16 07/22/16 07/22/16 07/23/16 07/23/16 07/23/16 07:00 15:00 23:00 07:00 15:00 23:00 Intake Total 943 ml 930 ml 480 ml 240 ml Output Total 1250 ml Balance 943 ml -320 ml 480 ml 240 ml Intake Oral 150 ml 930 ml 480 ml 240 ml IV Total 793 ml Output Urine Total 1250 ml # Voids 2 2 2 # Bowel Movements 0 0 0 Result Diagram: 07/22/16 0336 07/22/16 0334 Imaging Last Impressions Hip X-Ray 07/20/16 0000 Signed Impressions: Service Date/Time: June 14:46 - CONCLUSION: 1. Good alignment of the hip fracture post fixation. Sotero Caal MD Chest X-Ray 07/19/16 1655 Signed Impressions: Service Date/Time: Tuesday, July 19, 2016 17:17 - CONCLUSION: 1. Hypoinflation with no acute cardiac pulmonary process. 2. Probable chronic rotator cuff injury on the left. Ab Alvarado MD Knee X-Ray 07/19/16 0000 Signed Impressions: Service Date/Time: Tuesday, July 19, 2016 17:20 - CONCLUSION: Mild osteoarthritic changes with no acute fracture or effusion. Ab Alvarado MD Objective Remarks GENERAL: This is a well-nourished, well-developed patient, in no apparent distress. SKIN: No rashes, ecchymoses or lesions. Cool and dry. HEAD: Atraumatic. Normocephalic. No temporal or scalp tenderness. EYES: Pupils equal round and reactive. Extraocular motions intact. No scleral icterus. No injection or drainage. ENT: Nose without bleeding, purulent drainage or septal hematoma. Throat without erythema, tonsillar hypertrophy or exudate. Uvula midline. Airway patent. NECK: Trachea midline. No JVD or lymphadenopathy. Supple, nontender, no meningeal signs. CARDIOVASCULAR: Regular rate and rhythm without murmurs, gallops, or rubs. RESPIRATORY: Clear to auscultation. Breath sounds equal bilaterally. No wheezes , rales, or rhonchi. GASTROINTESTINAL: Abdomen soft, non-tender, nondistended. No hepato-splenomegaly , or palpable masses. No guarding. MUSCULOSKELETAL: Extremities without clubbing, cyanosis, or edema. No joint tenderness, effusion, or edema noted. No calf tenderness. Negative Homans sign bilaterally. NEUROLOGICAL: Awake and alert. Cranial nerves II through XII intact. Motor and sensory grossly within normal limits. Five out of 5 muscle strength in all muscle groups. Normal speech. A/P Assessment and Plan Right femoral neck fracture s/p ORIF with multiple screws 07/20/16 PLAN: Toe-touch weightbearing Discharge to SNF when medically clear, probably Sunday or Sunday. Lovenox. [place] for pain No dressing change Cleared by ortho for DC DISPO: DC to SNF when arrangements done Mariola Lindsay MD Jul 23, 2016 14:27
[2016-07-23] MEDS: LACTATED RINGER'S 1000 ML INJ 1,000 ML IV SCH (16:56)
[2016-07-23] MEDS: SENNOSIDES 8.6 MG TAB PO SCH (19:35)
[2016-07-23] MEDS: MIRTAZAPINE 15 MG TAB PO SCH (19:35)
[2016-07-23] MEDS: ATORVASTATIN 40 MG TAB PO SCH (19:35)
[2016-07-23] MEDS ORDERED: HALOPERIDOL LACTATE 5 MG/ML AMP IM ONE (23:45)
[2016-07-24] VITALS (7 sets, daily range): BP systolic 107–146; BP diastolic 62–75; PULSE 67–96; RESP 17–20; TEMP 97.4–98.6; O2SAT 90–96
[2016-07-24] MEDS: LACTATED RINGER'S 1000 ML INJ 1,000 ML IV SCH ×2 (01:02→17:40)
[2016-07-24] MEDS: ENOXAPARIN SODIUM 30 MG/0.3 ML SYRINGE SQ SCH (03:33)
[2016-07-24] MEDS: SODIUM CHLORIDE 0.9% FLUSH 5 ML FLUSH IVF SCH ×2 (09:00→21:04)
[2016-07-24] MEDS: MAGNESIUM HYDROXIDE SUSP 30 ML CUP PO SCH ×2 (09:31→21:00)
[2016-07-24] MEDS: RAMIPRIL 5 MG CAP PO SCH (09:31)
[2016-07-24] MEDS: ASPIRIN EC 81 MG TABEC PO SCH (09:32)
[2016-07-24] MEDS: HYDROCHLOROTHIAZIDE 25 MG TAB PO SCH (09:32)
[2016-07-24] MEDS: METOPROLOL TARTRATE 25 MG TAB PO SCH (09:32)
--- NOTE | 2016-07-24 10:07 | HHI.DCPOC ---
Discharge Care Plan Diagnosis: (1) Hypertension (2) Dementia (3) Fracture of femoral neck, closed (4) Impaired mobility and activities of daily living (5) Ischemic Stroke (6) DVT prophylaxis Goals to Promote Your Health * To prevent worsening of your condition and complications * To maintain your health at the optimal level Directions to Meet Your Goals Take your medications as prescribed Follow your dietary instruction Follow activity as directed Keep your appointments as scheduled Take your immunizations and boosters as scheduled If your symptoms worsen call your PCP, if no PCP go to Urgent Care Center or Emergency Room Smoking is Dangerous to Your Health. Avoid second hand smoke Call the 24-hour hour crisis hotline for domestic abuse at Ruddy Hubbard MD Jul 24, 2016 10:07
--- NOTE | 2016-07-24 10:11 | HHI.DS ---
Discharge Summary Admission Date Jul 19, 2016 at 18:15 Discharge Date: Jul 24, 2016 Admitting Diagnosis femoral neck fracture, fall, dementia (1) Dementia (2) Hypertension (3) Fall (4) Impaired cognition (5) Fracture of femoral neck, closed (6) Impaired mobility and activities of daily living (7) Ischemic Stroke (8) DVT prophylaxis Brief History 80 Y CM. S/P FALL AT [facility]. PT CONFUSED AND UNABLE TO PROVIDE INFO. PT W OBVIOUS HIP DEFORMITY. FOUND W HIP FX BELOW. PLACED IN BUCKS TXN. SEEN BY [facility] YET THEY THEN CALLED ME FOR ADMIT PT OF MINE. D/W DGTR. PT IN [place] AND AGITATED BUT OVERALL AT BASELINE MENTATION. CBC/BMP: 07/22/16 0336 07/22/16 0334 Significant Findings Laboratory Tests Test 07/22/16 07/22/16 03:34 03:36 Potassium Level 3.2 MEQ/L (3.5-5.1) Random Glucose 110 MG/DL (74-106) Calcium Level 7.9 MG/DL (8.5-10.1) Red Blood Count 3.86 MIL/MM3 (4.50-5.90) Hemoglobin 11.9 GM/DL (13.0-17.0) Hematocrit 34.5 % (39.0-51.0) Platelet Count 147 TH/MM3 (150-450) Neutrophils (%) (Auto) 70.2 % (16.0-70.0) Monocytes (%) (Auto) 9.9 % (0.0-8.0) Eosinophils (%) (Auto) 6.7 % (0.0-4.0) Eosinophils # (Auto) 0.5 TH/MM3 (0-0.4) PE at Discharge GENERAL: SKIN: Warm and dry. HEAD: Atraumatic. Normocephalic. EYES: Pupils equal and round. No scleral icterus. No injection or drainage. ENT: No nasal bleeding or discharge. Mucous membranes pink and moist. NECK: Trachea midline. No JVD. CARDIOVASCULAR: Regular rate and rhythm. RESPIRATORY: No accessory muscle use. Clear to auscultation. Breath sounds equal bilaterally. GASTROINTESTINAL: Abdomen soft, non-tender, nondistended. Hepatic and splenic margins not palpable. MUSCULOSKELETAL: Extremities without clubbing, cyanosis, or edema. No obvious deformities. NEUROLOGICAL: Awake and alert. No obvious cranial nerve deficits. Motor grossly within normal limits. 2 out of 5 muscle strength in the arms and legs. Normal speech. PSYCHIATRIC: Appropriate mood and affect; Hospital Course 80 Y CM. SEV ALZ. ADMIT W HIP FX, S/P SUCCESSFUL REPAIR. K LOW. OUT OF RESTRAINTS. NEEDS DC CLAIR. DC TO SNF. POOR PROG DUE TO SEVERE DEMENTIA AND FALL RISK AGAIN. Discharge Disposition: Discharge to SNF Discharge Instructions DIET: Follow Instructions for: As Tolerated, No Restrictions Activities you can perform: Toe Touch Weight Bearing Follow up Referrals: Orthopedics - [facility] Weeks [facility] with Srikanth Mcnally MD PCP Follow-up - 2-[address] SILVA New Medications: Enoxaparin Inj (Lovenox Inj) 40 Mg/0.4 Ml Syr 40 MG SQ Q24H Prevent Blood Clot #25 INJECTION Oxycodone-Acetaminophen (Oxycodone-Acetaminophen) 5-325 mg Tab 1 TAB PO Q6H PRN PAIN SCALE 5 TO 10 #50 TAB Continued Medications: Aspirin DR (Aspirin 81) 81 Mg Tabdr 81 MG PO DAILY Ref 0 TAB Atorvastatin (Atorvastatin) 40 Mg Tab 40 MG PO HS Cholesterol Management #30 Ref 0 TAB Lorazepam (Ativan) 0.5 Mg Tab 0.5 MG PO DAILY PRN ANXIETY AND/OR AGITATION Ref 0 TAB Meclizine (Meclizine) 25 Mg Chew 25 MG CHEW DIRECTED PRN VERTIGO Ref 0 TAB Metoprolol Tartrate (Metoprolol Tartrate) 25 Mg Tab 25 MG PO DAILY #30 Ref 0 TAB Mirtazapine (Mirtazapine) 15 Mg Tab 15 MG PO HS Depression Control #30 Ref 0 TAB Risperidone (Risperidone) 0.5 Mg Tab 0.5 MG PO Q12HR #60 Ref 0 TAB Discontinued Medications: Acetaminophen (Tylenol 8 Hour Arthritis) 650 Mg Tab 650 MG PO Q4HR Hydrochlorothiazide (Hydrochlorothiazide) 25 Mg Tab 25 MG PO DAILY #30 Ref 0 TAB Lorazepam (Lorazepam) 0.5 Mg Tab 0.5 MG PO DAILY PRN ANXIETY Ref 0 TAB Ramipril (Ramipril) 5 Mg Cap 5 MG PO DAILY #30 Ref 0 CAP Ruddy Silva MD Jul 24, 2016 10:11
[2016-07-24] MEDS ORDERED: POTASSIUM CHLORIDE 20 MEQ CONTROLLED RELEASE TAB PO ONE (11:00)
[2016-07-24] MEDS: ACETAMINOPHEN/HYDROcodone 325 MG/5 MG TAB PO PRN ×3 (11:16→21:04)
[2016-07-24] MEDS: HALOPERIDOL LACTATE 5 MG/ML AMP IM PRN ×2 (16:00→21:04)
[2016-07-24] MEDS: SENNOSIDES 8.6 MG TAB PO SCH (21:00)
[2016-07-24] MEDS: MIRTAZAPINE 15 MG TAB PO SCH (21:03)
[2016-07-24] MEDS: ATORVASTATIN 40 MG TAB PO SCH (21:03)
[2016-07-25] VITALS (8 sets, daily range): BP systolic 94–147; BP diastolic 51–85; PULSE 58–84; RESP 16–18; TEMP 96.2–97.8; O2SAT 94–99
[2016-07-25] MEDS: HALOPERIDOL LACTATE 5 MG/ML AMP IM PRN ×3 (03:23→20:08)
[2016-07-25] MEDS: ENOXAPARIN SODIUM 30 MG/0.3 ML SYRINGE SQ SCH (03:23)
[2016-07-25] MEDS: ACETAMINOPHEN/HYDROcodone 325 MG/5 MG TAB PO PRN ×5 (03:23→20:09)
[2016-07-25] MEDS: LACTATED RINGER'S 1000 ML INJ 1,000 ML IV SCH ×2 (04:23→08:55)
[2016-07-25] MEDS: RAMIPRIL 5 MG CAP PO SCH (08:53)
[2016-07-25] MEDS: MAGNESIUM HYDROXIDE SUSP 30 ML CUP PO SCH ×2 (08:54→20:10)
[2016-07-25] MEDS: HYDROCHLOROTHIAZIDE 25 MG TAB PO SCH (08:54)
[2016-07-25] MEDS: METOPROLOL TARTRATE 25 MG TAB PO SCH (08:54)
[2016-07-25] MEDS: SODIUM CHLORIDE 0.9% FLUSH 5 ML FLUSH IVF SCH ×2 (08:54→20:10)
[2016-07-25] MEDS: ASPIRIN EC 81 MG TABEC PO SCH (08:54)
--- NOTE | 2016-07-25 11:03 | HHI.FPPN ---
Subjective Remarks SITTING UP EATING SITTER AT [facility] D/W RN CALM AND [place]AS[place] Objective Vitals Vital Signs Date Time Temp Pulse Resp B/P Pulse Ox O2 Delivery O2 Flow Rate FiO2 07/25/16 04:42 96.8 73 17 145/85 97 07/25/16 00:47 96.8 66 17 140/71 94 07/24/16 19:50 98.3 76 17 107/62 92 07/24/16 16:00 97.4 83 18 138/75 95 07/24/16 12:00 98.3 67 18 140/74 94 I/O 07/24/16 07/24/16 07/24/16 07/25/16 07/25/16 07/25/16 07:00 15:00 23:00 07:00 15:00 23:00 Intake Total 120 ml 960 ml 240 ml 120 ml Output Total 200 ml Balance -80 ml 960 ml 240 ml 120 ml Intake Oral 120 ml 960 ml 240 ml 120 ml Output Urine Total 200 ml # Voids 2 3 1 # Bowel Movements 1 4 1 0 Result Diagram: 07/22/16 0336 07/22/16 0334 Objective Remarks GENERAL: SKIN: Warm and dry. Incision c/d/i HEAD: Atraumatic. Normocephalic. EYES: Pupils equal and round. No scleral icterus. No injection or drainage. ENT: No nasal bleeding or discharge. Mucous membranes pink and moist. NECK: Trachea midline. No JVD. CARDIOVASCULAR: Regular rate and rhythm. RESPIRATORY: No accessory muscle use. Clear to auscultation. Breath sounds equal bilaterally. GASTROINTESTINAL: Abdomen soft, non-tender, nondistended. Hepatic and splenic margins not palpable. MUSCULOSKELETAL: Extremities without clubbing, cyanosis, or edema. No obvious deformities. NEUROLOGICAL: Awake and alert. No obvious cranial nerve deficits. Motor grossly within normal limits. 3 out of 5 muscle strength in the arms and legs. Normal speech. PSYCHIATRIC: confused, demented, follows simple commands Medications and IVs Current Medications Medications (Trade) Dose Ordered Sig/Taty Route Start Time Stop Time Status Last Admin (Tylenol) 650 mg Q4H PRN PO 07/19/16 18:30 (Narcan Inj) 0.4 mg UNSCH PRN IV 07/19/16 18:30 (Dilaudid Pf Inj) 0.2 mg Q4H PRN IV PUSH 07/19/16 19:00 07/20/16 09:49 (Ecotrin Ec) 81 mg DAILY PO 07/21/16 09:00 07/25/16 08:54 (Lipitor) 40 mg HS PO 07/20/16 21:00 07/24/16 21:03 (Hydrodiuril) 25 mg DAILY PO 07/21/16 09:00 07/25/16 08:54 (Lopressor) 25 mg DAILY PO 07/21/16 09:00 07/25/16 08:54 (Remeron) 15 mg HS PO 07/20/16 21:00 07/24/16 21:03 Ramipril 5 mg 5 mg DAILY PO 07/21/16 09:00 07/25/16 08:53 (Lr 1000 ml Inj) 1,000 ml @ 80 mls/hr [id number] IV 07/20/16 14:24 07/22/16 02:38 (NS Flush) 2 ml UNSCH PRN IVF 07/20/16 14:30 (NS Flush) 2 ml BID IVF 07/20/16 21:00 07/24/16 21:04 (Lovenox Inj) 30 mg Q24H SQ 07/21/16 03:00 07/25/16 03:23 Miscellaneous Information UNSCH PRN XX 07/20/16 14:30 (Morphine Inj) 5 mg Q3H PRN IM 07/20/16 14:30 07/21/16 14:35 ([place] 5-325 Mg) 1 tab Q4H PRN PO 07/20/16 14:30 07/25/16 08:54 ([place] 5-325 Mg) 2 tab Q4H PRN PO 07/20/16 14:30 07/25/16 03:23 (Zofran Inj) 4 mg Q6H PRN IVP 07/20/16 14:30 (Mag-Al Plus Susp Liq) 30 ml Q6H PRN PO 07/20/16 14:30 (Restoril) 15 mg HS PRN PO 07/20/16 14:30 07/22/16 02:37 (Milk Of Magnesia Liq) 30 ml BID PO 07/20/16 21:00 07/24/16 09:31 (Senokot) 17.2 mg HS PO 07/20/16 21:00 07/23/16 19:35 (Haldol Inj) 4 mg Q4H PRN IM 07/24/16 15:45 07/25/16 03:23 A/P Problem List: (1) Fracture of femoral neck, closed Status: Acute Plan: lovenox qd 3008 and narcotic RX in chart and ready for dc to SNF. Stop restraints and continue sitter and hopefully dc to SNF tomorrow if stable. (2) Dementia Status: Acute (3) Hypertension Status: Chronic (4) Fall Status: Acute (5) Impaired cognition Status: Acute (6) DVT prophylaxis Status: Chronic (7) Impaired mobility and activities of daily living Status: Acute (8) Ischemic Stroke Status: Acute Plan: HYPOKALEMIA, CHECK K NOW Problem Qualifiers (1) Fracture of femoral neck, closed: Qualified Code: S72.001A - Closed fracture of neck of right femur, initial encounter (2) Dementia: Qualified Code: F03.90 - Dementia without behavioral disturbance, unspecified dementia type (3) Fall: Qualified Code: W19.XXXA - Fall, initial encounter Ruddy Hubbard MD Jul 25, 2016 11:02
[2016-07-25] MEDS: ATORVASTATIN 40 MG TAB PO SCH (20:09)
[2016-07-25] MEDS: MIRTAZAPINE 15 MG TAB PO SCH (20:09)
[2016-07-25] MEDS: SENNOSIDES 8.6 MG TAB PO SCH (20:10)
[2016-07-26 00:14] VITALS: BP 115/68; PULSE 65; RESP 17; TEMP 96.3; O2SAT 95
[2016-07-26] MEDS: ACETAMINOPHEN/HYDROcodone 325 MG/5 MG TAB PO PRN ×5 (03:04→21:15)
[2016-07-26] MEDS: ENOXAPARIN SODIUM 30 MG/0.3 ML SYRINGE SQ SCH (03:04)
[2016-07-26] MEDS: HALOPERIDOL LACTATE 5 MG/ML AMP IM PRN ×5 (03:04→23:19)
[2016-07-26] MEDS: LACTATED RINGER'S 1000 ML INJ 1,000 ML IV SCH ×2 (04:08→20:02)
[2016-07-26 04:50] VITALS: BP 119/63; PULSE 68; RESP 17; TEMP 96.4; O2SAT 95
[2016-07-26 08:00] VITALS: BP 142/77; PULSE 72; RESP 16; TEMP 96.1; O2SAT 94
[2016-07-26] MEDS: SODIUM CHLORIDE 0.9% FLUSH 5 ML FLUSH IVF SCH ×2 (09:00→21:00)
[2016-07-26] MEDS: ASPIRIN EC 81 MG TABEC PO SCH (09:59)
[2016-07-26] MEDS: HYDROCHLOROTHIAZIDE 25 MG TAB PO SCH (10:00)
[2016-07-26] MEDS: RAMIPRIL 5 MG CAP PO SCH (10:00)
[2016-07-26] MEDS: METOPROLOL TARTRATE 25 MG TAB PO SCH (10:00)
[2016-07-26] MEDS: MAGNESIUM HYDROXIDE SUSP 30 ML CUP PO SCH ×2 (10:07→21:14)
--- NOTE | 2016-07-26 10:35 | HHI.FPPN ---
Subjective Remarks SITTER AT BEDSIDE D/W RN Objective Vitals Vital Signs Date Time Temp Pulse Resp B/P Pulse Ox O2 Delivery O2 Flow Rate FiO2 07/26/16 08:00 96.1 72 16 142/77 94 07/26/16 04:50 96.4 68 17 119/63 95 07/26/16 00:14 96.3 65 17 115/68 95 07/25/16 20:20 96.2 77 18 143/62 94 07/25/16 16:08 96.7 84 18 147/83 99 07/25/16 16:00 97.0 79 16 131/69 94 07/25/16 12:30 97.8 74 17 105/67 98 07/25/16 12:00 96.5 58 16 94/51 94 I/O 07/25/16 07/25/16 07/25/16 07/26/16 07/26/16 07/26/16 07:00 15:00 23:00 07:00 15:00 23:00 Intake Total 120 ml 600 ml 240 ml 60 ml Output Total 200 ml Balance 120 ml 400 ml 240 ml 60 ml Intake Oral 120 ml 600 ml 240 ml 60 ml Output Urine Total 200 ml # Voids 1 2 1 3 # Bowel Movements 0 1 0 0 Result Diagram: 07/22/16 0336 07/25/16 1158 Objective Remarks GENERAL: SKIN: Warm and dry. Incision c/d/i HEAD: Atraumatic. Normocephalic. EYES: Pupils equal and round. No scleral icterus. No injection or drainage. ENT: No nasal bleeding or discharge. Mucous membranes pink and moist. NECK: Trachea midline. No JVD. CARDIOVASCULAR: Regular rate and rhythm. RESPIRATORY: No accessory muscle use. Clear to auscultation. Breath sounds equal bilaterally. GASTROINTESTINAL: Abdomen soft, non-tender, nondistended. Hepatic and splenic margins not palpable. MUSCULOSKELETAL: Extremities without clubbing, cyanosis, or edema. No obvious deformities. NEUROLOGICAL: Awake and alert. No obvious cranial nerve deficits. Motor grossly within normal limits. 3 out of 5 muscle strength in the arms and legs. Normal speech. PSYCHIATRIC: confused, demented, follows simple commands Medications and IVs Current Medications Medications (Trade) Dose Ordered Sig/Taty Route Start Time Stop Time Status Last Admin (Tylenol) 650 mg Q4H PRN PO 07/19/16 18:30 (Narcan Inj) 0.4 mg UNSCH PRN IV 07/19/16 18:30 (Dilaudid Pf Inj) 0.2 mg Q4H PRN IV PUSH 07/19/16 19:00 07/20/16 09:49 (Ecotrin Ec) 81 mg DAILY PO 07/21/16 09:00 07/26/16 09:59 (Lipitor) 40 mg HS PO 07/20/16 21:00 07/25/16 20:09 (Hydrodiuril) 25 mg DAILY PO 07/21/16 09:00 07/26/16 10:00 (Lopressor) 25 mg DAILY PO 07/21/16 09:00 07/26/16 10:00 (Remeron) 15 mg HS PO 07/20/16 21:00 07/25/16 20:09 Ramipril 5 mg 5 mg DAILY PO 07/21/16 09:00 07/26/16 10:00 (Lr 1000 ml Inj) 1,000 ml @ 80 mls/hr [id number] IV 07/20/16 14:24 07/22/16 02:38 (NS Flush) 2 ml UNSCH PRN IVF 07/20/16 14:30 (NS Flush) 2 ml BID IVF 07/20/16 21:00 07/24/16 21:04 (Lovenox Inj) 30 mg Q24H SQ 07/21/16 03:00 07/26/16 03:04 Miscellaneous Information UNSCH PRN XX 07/20/16 14:30 (Morphine Inj) 5 mg Q3H PRN IM 07/20/16 14:30 07/21/16 14:35 ([place] 5-325 Mg) 1 tab Q4H PRN PO 07/20/16 14:30 07/26/16 07:27 ([place] 5-325 Mg) 2 tab Q4H PRN PO 07/20/16 14:30 07/26/16 03:04 (Zofran Inj) 4 mg Q6H PRN IVP 07/20/16 14:30 (Mag-Al Plus Susp Liq) 30 ml Q6H PRN PO 07/20/16 14:30 (Restoril) 15 mg HS PRN PO 07/20/16 14:30 07/22/16 02:37 (Milk Of Magnesia Liq) 30 ml BID PO 07/20/16 21:00 07/26/16 10:07 (Senokot) 17.2 mg HS PO 07/20/16 21:00 07/23/16 19:35 (Haldol Inj) 4 mg Q4H PRN IM 07/24/16 15:45 07/26/16 07:27 A/P Problem List: (1) Fracture of femoral neck, closed Status: Acute Plan: lovenox qd 3008 and narcotic RX in chart and ready for dc to SNF. Stop restraints and continue sitter and hopefully dc to SNF tomorrow if stable. (2) Dementia Status: Acute (3) Hypertension Status: Chronic (4) Fall Status: Acute (5) Impaired cognition Status: Acute (6) DVT prophylaxis Status: Chronic (7) Impaired mobility and activities of daily living Status: Acute (8) Ischemic Stroke Status: Acute Plan: HYPOKALEMIA Problem Qualifiers (1) Fracture of femoral neck, closed: Qualified Code: S72.001A - Closed fracture of neck of right femur, initial encounter (2) Dementia: Qualified Code: F03.90 - Dementia without behavioral disturbance, unspecified dementia type (3) Fall: Qualified Code: W19.XXXA - Fall, initial encounter Ruddy Hubbard MD Jul 26, 2016 10:35
[2016-07-26 12:00] VITALS: BP 122/70; PULSE 86; RESP 16; TEMP 96.6; O2SAT 94
[2016-07-26 16:00] VITALS: BP 146/76; PULSE 85; RESP 16; TEMP 97.6; O2SAT 93
[2016-07-26 20:00] VITALS: BP 118/69; PULSE 83; RESP 16; TEMP 98.6; O2SAT 98
[2016-07-26] MEDS: SENNOSIDES 8.6 MG TAB PO SCH (21:14)
[2016-07-26] MEDS: ATORVASTATIN 40 MG TAB PO SCH (21:14)
[2016-07-26] MEDS: MIRTAZAPINE 15 MG TAB PO SCH (21:14)
[2016-07-27] VITALS: BP 137/82; PULSE 84; RESP 16; TEMP 96.9; O2SAT 95
[2016-07-27] MEDS: ENOXAPARIN SODIUM 30 MG/0.3 ML SYRINGE SQ SCH (03:47)
[2016-07-27 08:12] VITALS: BP 141/74; PULSE 66; RESP 16; TEMP 96; O2SAT 96
[2016-07-27] MEDS: LACTATED RINGER'S 1000 ML INJ 1,000 ML IV SCH (08:54)
[2016-07-27] MEDS: SODIUM CHLORIDE 0.9% FLUSH 5 ML FLUSH IVF SCH ×2 (08:57→19:53)
[2016-07-27] MEDS: MAGNESIUM HYDROXIDE SUSP 30 ML CUP PO SCH ×2 (08:57→19:54)
[2016-07-27] MEDS: ASPIRIN EC 81 MG TABEC PO SCH (08:57)
[2016-07-27] MEDS: HYDROCHLOROTHIAZIDE 25 MG TAB PO SCH (08:57)
[2016-07-27] MEDS: METOPROLOL TARTRATE 25 MG TAB PO SCH (08:57)
[2016-07-27] MEDS: RAMIPRIL 5 MG CAP PO SCH (08:57)
[2016-07-27] MEDS: ACETAMINOPHEN/HYDROcodone 325 MG/5 MG TAB PO PRN ×2 (11:59→21:19)
[2016-07-27 12:24] VITALS: BP 99/54; PULSE 70; RESP 16; TEMP 95.6; O2SAT 95
--- NOTE | 2016-07-27 15:55 | HHI.FPPN ---
Subjective Remarks CALM TRIES TO GET OOB SITTER AT [facility] D/W INVENTORY REPRESENTATIVE'S Objective Vitals Vital Signs Date Time Temp Pulse Resp B/P Pulse Ox O2 Delivery O2 Flow Rate FiO2 07/27/16 12:59 18 07/27/16 12:24 95.6 70 16 99/54 95 07/27/16 08:12 96.0 66 16 141/74 96 07/27/16 00:00 96.9 84 16 137/82 95 07/26/16 20:00 98.6 83 16 118/69 98 07/26/16 16:00 97.6 85 16 146/76 93 I/O 07/26/16 07/26/16 07/26/16 07/27/16 07/27/16 07/27/16 07:00 15:00 23:00 07:00 15:00 23:00 Intake Total 60 ml 1200 ml 240 ml 240 ml Output Total 500 ml Balance 60 ml 1200 ml 240 ml -260 ml Intake Oral 60 ml 1200 ml 240 ml 240 ml Output Urine Total 500 ml # Voids 3 4 1 # Bowel Movements 0 0 0 0 Result Diagram: 07/25/16 1158 Objective Remarks GENERAL: SKIN: Warm and dry. Incision c/d/i HEAD: Atraumatic. Normocephalic. EYES: Pupils equal and round. No scleral icterus. No injection or drainage. ENT: No nasal bleeding or discharge. Mucous membranes pink and moist. NECK: Trachea midline. No JVD. CARDIOVASCULAR: Regular rate and rhythm. RESPIRATORY: No accessory muscle use. Clear to auscultation. Breath sounds equal bilaterally. GASTROINTESTINAL: Abdomen soft, non-tender, nondistended. Hepatic and splenic margins not palpable. MUSCULOSKELETAL: Extremities without clubbing, cyanosis, or edema. No obvious deformities. NEUROLOGICAL: Awake and alert. No obvious cranial nerve deficits. Motor grossly within normal limits. 3 out of 5 muscle strength in the arms and legs. Normal speech. PSYCHIATRIC: confused, demented, follows simple commands A/P Problem List: (1) Fracture of femoral neck, closed Status: Acute Plan: lovenox qd 3008 and narcotic RX in chart and ready for dc to SNF. STILL NEEDING SITTER IN ORDER TO BE OUT OF RESTRAINTS. AMBIEN SCHEDULED HS STOP HALDOL STOP RESTORIL ATIVAN PRN PSYCHOSIS SEROQUEL PRN WILL LIKELY NEED VPA (2) Dementia Status: Acute (3) Hypertension Status: Chronic (4) Fall Status: Acute (5) Impaired cognition Status: Acute (6) DVT prophylaxis Status: Chronic (7) Impaired mobility and activities of daily living Status: Acute (8) Ischemic Stroke Status: Acute Plan: HYPOKALEMIA Problem Qualifiers (1) Fracture of femoral neck, closed: Qualified Code: S72.001A - Closed fracture of neck of right femur, initial encounter (2) Dementia: Qualified Code: F03.90 - Dementia without behavioral disturbance, unspecified dementia type (3) Fall: Qualified Code: W19.XXXA - Fall, initial encounter Ruddy Hubbard MD Jul 27, 2016 15:55
[2016-07-27 16:00] VITALS: BP 121/60; PULSE 76; RESP 16; TEMP 96.2; O2SAT 96
[2016-07-27] MEDS ORDERED: LORazepam 2 MG/ML VIAL IV PUSH PRN (16:00)
[2016-07-27] MEDS: MIRTAZAPINE 15 MG TAB PO SCH (19:53)
[2016-07-27] MEDS: ATORVASTATIN 40 MG TAB PO SCH (19:53)
[2016-07-27] MEDS: ZOLPIDEM TARTRATE 5 MG TAB PO SCH (19:53)
[2016-07-27] MEDS: QUEtiapine FUMARATE 25 MG TAB PO PRN (19:53)
[2016-07-27] MEDS: SENNOSIDES 8.6 MG TAB PO SCH (19:54)
[2016-07-27 20:00] VITALS: BP 139/69; PULSE 83; RESP 16; TEMP 96.6; O2SAT 94
[2016-07-28 00:15] VITALS: BP 138/78; PULSE 75; RESP 18; TEMP 96.3; O2SAT 95
[2016-07-28] MEDS: ENOXAPARIN SODIUM 30 MG/0.3 ML SYRINGE SQ SCH (03:00)
[2016-07-28 04:00] VITALS: BP 148/73; PULSE 76; RESP 17; TEMP 96.9; O2SAT 95
[2016-07-28] MEDS: QUEtiapine FUMARATE 25 MG TAB PO PRN ×4 (05:01→23:05)
[2016-07-28] MEDS: ACETAMINOPHEN/HYDROcodone 325 MG/5 MG TAB PO PRN ×3 (05:01→15:17)
[2016-07-28 08:14] VITALS: BP 156/85; PULSE 94; RESP 18; TEMP 98.4; O2SAT 96
[2016-07-28] MEDS: RAMIPRIL 5 MG CAP PO SCH (08:28)
[2016-07-28] MEDS: SODIUM CHLORIDE 0.9% FLUSH 5 ML FLUSH IVF SCH ×2 (08:28→19:52)
[2016-07-28] MEDS: METOPROLOL TARTRATE 25 MG TAB PO SCH (08:28)
[2016-07-28] MEDS: HYDROCHLOROTHIAZIDE 25 MG TAB PO SCH (08:28)
[2016-07-28] MEDS: ASPIRIN EC 81 MG TABEC PO SCH (08:28)
[2016-07-28] MEDS: MAGNESIUM HYDROXIDE SUSP 30 ML CUP PO SCH ×2 (08:28→19:52)
--- NOTE | 2016-07-28 11:08 | HHI.FPPN ---
Subjective Remarks AGITATED SITTER AT [facility] D/W BUSINESS DEAN Objective Vitals Vital Signs Date Time Temp Pulse Resp B/P Pulse Ox O2 Delivery O2 Flow Rate FiO2 07/28/16 08:14 98.4 94 18 156/85 96 07/28/16 04:00 96.9 76 17 148/73 95 07/27/16 20:00 96.6 83 16 139/69 94 07/27/16 16:00 96.2 76 16 121/60 96 07/27/16 12:59 18 07/27/16 12:24 95.6 70 16 99/54 95 I/O 07/27/16 07/27/16 07/27/16 07/28/16 07/28/16 07/28/16 07:00 15:00 23:00 07:00 15:00 23:00 Intake Total 240 ml 860 ml 240 ml 240 ml Output Total 500 ml 300 ml Balance -260 ml 860 ml 240 ml -60 ml Intake Oral 240 ml 860 ml 240 ml 240 ml Output Urine Total 500 ml 300 ml # Voids 4 1 1 # Bowel Movements 0 1 0 Result Diagram: 07/25/16 1158 Objective Remarks GENERAL: SKIN: Warm and dry. Incision c/d/i HEAD: Atraumatic. Normocephalic. EYES: Pupils equal and round. No scleral icterus. No injection or drainage. ENT: No nasal bleeding or discharge. Mucous membranes pink and moist. NECK: Trachea midline. No JVD. CARDIOVASCULAR: Regular rate and rhythm. RESPIRATORY: No accessory muscle use. Clear to auscultation. Breath sounds equal bilaterally. GASTROINTESTINAL: Abdomen soft, non-tender, nondistended. Hepatic and splenic margins not palpable. MUSCULOSKELETAL: Extremities without clubbing, cyanosis, or edema. No obvious deformities. NEUROLOGICAL: Awake and alert. No obvious cranial nerve deficits. Motor grossly within normal limits. 3 out of 5 muscle strength in the arms and legs. Normal speech. PSYCHIATRIC: confused, demented, follows simple commands Medications and IVs Current Medications Medications (Trade) Dose Ordered Sig/Taty Route Start Time Stop Time Status Last Admin (Tylenol) 650 mg Q4H PRN PO 07/19/16 18:30 (Narcan Inj) 0.4 mg UNSCH PRN IV 07/19/16 18:30 (Dilaudid Pf Inj) 0.2 mg Q4H PRN IV PUSH 3/22/17 19:00 07/20/16 09:49 (Ecotrin Ec) 81 mg DAILY PO 07/21/16 09:00 07/28/16 08:28 (Lipitor) 40 mg HS PO 07/20/16 21:00 07/27/16 19:53 (Hydrodiuril) 25 mg DAILY PO 07/21/16 09:00 07/28/16 08:28 (Lopressor) 25 mg DAILY PO 07/21/16 09:00 07/28/16 08:28 (Remeron) 15 mg HS PO 07/20/16 21:00 07/27/16 19:53 (Altace) 5 mg DAILY PO 07/21/16 09:00 07/28/16 08:28 (NS Flush) 2 ml UNSCH PRN IVF 07/20/16 14:30 (NS Flush) 2 ml BID IVF 07/20/16 21:00 07/24/16 21:04 (Lovenox Inj) 30 mg Q24H SQ 07/21/16 03:00 07/28/16 03:00 Miscellaneous Information UNSCH PRN XX 07/20/16 14:30 (Morphine Inj) 5 mg Q3H PRN IM 07/20/16 14:30 07/21/16 14:35 ([place] 5-325 Mg) 1 tab Q4H PRN PO 07/20/16 14:30 07/26/16 16:47 ([place]ena 5-325 Mg) 2 tab Q4H PRN PO 07/20/16 14:30 07/28/16 10:39 (Zofran Inj) 4 mg Q6H PRN IVP 07/20/16 14:30 (Mag-Al Plus Susp Liq) 30 ml Q6H PRN PO 07/20/16 14:30 (Milk Of Magnesia Liq) 30 ml BID PO 07/20/16 21:00 07/27/16 08:57 (Senokot) 17.2 mg HS PO 07/20/16 21:00 07/26/16 21:14 (Ativan Inj) 0.5 mg Q6H PRN IV PUSH 07/27/16 16:00 (Ambien) 5 mg HS PO 07/27/16 21:00 07/27/16 19:53 (SEROquel) 25 mg Q6H PRN PO 07/27/16 16:00 07/28/16 10:39 A/P Problem List: (1) Fracture of femoral neck, closed Status: Acute Plan: lovenox qd 3008 and narcotic RX in chart and ready for dc to SNF. STILL NEEDING SITTER IN ORDER TO BE OUT OF RESTRAINTS THEREFORE CANNOT GO TO SNF UNTIL 24 HOURS WITHOUT A SITTER. JAYDE SCHEDULED HS OFF HALDOL PRN NOW. OFF RESTORIL ATIVAN PRN PSYCHOSIS SEROQUEL PRN WILL LIKELY NEED VPA (2) Dementia Status: Acute (3) Hypertension Status: Chronic (4) Fall Status: Acute (5) Impaired cognition Status: Acute (6) DVT prophylaxis Status: Chronic (7) Impaired mobility and activities of daily living Status: Acute (8) Ischemic Stroke Status: Acute Plan: HYPOKALEMIA Problem Qualifiers (1) Fracture of femoral neck, closed: Qualified Code: S72.001A - Closed fracture of neck of right femur, initial encounter (2) Dementia: Qualified Code: F03.90 - Dementia without behavioral disturbance, unspecified dementia type (3) Fall: Qualified Code: W19.XXXA - Fall, initial encounter Ruddy Hubbard MD Jul 28, 2016 11:08
[2016-07-28 11:22] VITALS: BP 125/68; PULSE 70; RESP 18; TEMP 95.2; O2SAT 95
[2016-07-28 15:48] VITALS: BP 116/64; PULSE 67; RESP 18; TEMP 96; O2SAT 95
[2016-07-28] MEDS: ZOLPIDEM TARTRATE 5 MG TAB PO SCH (19:54)
[2016-07-28] MEDS: MIRTAZAPINE 15 MG TAB PO SCH (19:54)
[2016-07-28] MEDS: ATORVASTATIN 40 MG TAB PO SCH (19:54)
[2016-07-28] MEDS: SENNOSIDES 8.6 MG TAB PO SCH (19:55)
[2016-07-28 20:45] VITALS: BP 133/73; PULSE 86; RESP 16; TEMP 96.5; O2SAT 94
[2016-07-29] MEDS: ACETAMINOPHEN/HYDROcodone 325 MG/5 MG TAB PO PRN ×2 (00:36→22:42)
[2016-07-29] MEDS: ENOXAPARIN SODIUM 30 MG/0.3 ML SYRINGE SQ SCH (04:00)
[2016-07-29 05:10] VITALS: BP 115/67; PULSE 76; RESP 18; TEMP 95.4; O2SAT 97
[2016-07-29] MEDS: QUEtiapine FUMARATE 25 MG TAB PO PRN ×3 (06:45→22:42)
[2016-07-29] MEDS: MAGNESIUM HYDROXIDE SUSP 30 ML CUP PO SCH ×2 (08:17→20:10)
[2016-07-29] MEDS: HYDROCHLOROTHIAZIDE 25 MG TAB PO SCH (08:17)
[2016-07-29 08:18] VITALS: BP 134/75; PULSE 79; RESP 18; TEMP 97; O2SAT 95
[2016-07-29] MEDS: ASPIRIN EC 81 MG TABEC PO SCH (08:18)
[2016-07-29] MEDS: METOPROLOL TARTRATE 25 MG TAB PO SCH (08:18)
[2016-07-29] MEDS: RAMIPRIL 5 MG CAP PO SCH (08:18)
[2016-07-29] MEDS: SODIUM CHLORIDE 0.9% FLUSH 5 ML FLUSH IVF SCH ×2 (08:18→19:20)
--- NOTE | 2016-07-29 10:08 | HHI.PR ---
Subjective Remarks In the bed, he doesn't appear in distress. No fevers or chills. He gets agitated at night. Currently sitter is not at bedside and he is not agitated. He is pleasantly confused. No n/v/d/c. No fever or chills. No cough. Objective Vitals Vital Signs Date Time Temp Pulse Resp B/P Pulse Ox O2 Delivery O2 Flow Rate FiO2 07/29/16 08:18 97.0 79 18 134/75 95 07/29/16 05:10 95.4 76 18 115/67 97 07/29/16 01:20 18 07/28/16 23:21 Room Air 07/28/16 20:45 96.5 86 16 133/73 94 07/28/16 15:48 96.0 67 18 116/64 95 07/28/16 11:22 95.2 70 18 125/68 95 I/O 07/28/16 07/28/16 07/28/16 07/29/16 07/29/16 07/29/16 07:00 15:00 23:00 07:00 15:00 23:00 Intake Total 240 ml 120 ml Output Total 300 ml Balance -60 ml 120 ml Intake Oral 240 ml 120 ml Output Urine Total 300 ml # Voids 2 1 2 # Bowel Movements 0 0 Result Diagram: 07/25/16 1158 Imaging Last Impressions Hip X-Ray 07/20/16 0000 Signed Impressions: Service Date/Time: June 14:46 - CONCLUSION: 1. Good alignment of the hip fracture post fixation. Sotero Caal MD Chest X-Ray 07/19/16 1655 Signed Impressions: Service Date/Time: Tuesday, July 19, 2016 17:17 - CONCLUSION: 1. Hypoinflation with no acute cardiac pulmonary process. 2. Probable chronic rotator cuff injury on the left. Ab Alvarado MD Knee X-Ray 07/19/16 0000 Signed Impressions: Service Date/Time: Tuesday, July 19, 2016 17:20 - CONCLUSION: Mild osteoarthritic changes with no acute fracture or effusion. Ab Alvarado MD Objective Remarks GENERAL: This is a well-nourished, well-developed patient, in no apparent distress. SKIN: No rashes, ecchymoses or lesions. Cool and dry. HEAD: Atraumatic. Normocephalic. No temporal or scalp tenderness. EYES: Pupils equal round and reactive. Extraocular motions intact. No scleral icterus. No injection or drainage. ENT: Nose without bleeding, purulent drainage or septal hematoma. Throat without erythema, tonsillar hypertrophy or exudate. Uvula midline. Airway patent. NECK: Trachea midline. No JVD or lymphadenopathy. Supple, nontender, no meningeal signs. CARDIOVASCULAR: Regular rate and rhythm without murmurs, gallops, or rubs. RESPIRATORY: Clear to auscultation. Breath sounds equal bilaterally. No wheezes , rales, or rhonchi. GASTROINTESTINAL: Abdomen soft, non-tender, nondistended. No hepato-splenomegaly , or palpable masses. No guarding. MUSCULOSKELETAL: Extremities without clubbing, cyanosis, or edema. No joint tenderness, effusion, or edema noted. No calf tenderness. Negative Homans sign bilaterally. NEUROLOGICAL: Awake and alert. Cranial nerves II through XII intact. Motor and sensory grossly within normal limits. Five out of 5 muscle strength in all muscle groups. Normal speech. A/P Problem List: (1) Dementia ICD Code: F03.90 Status: Acute (2) Hypertension ICD Code: I10 Status: Chronic (3) Fall ICD Code: W19.XXXA Status: Acute (4) Impaired cognition ICD Code: R41.89 Status: Acute (5) Fracture of femoral neck, closed ICD Code: S72.009A Status: Acute (6) Impaired mobility and activities of daily living ICD Code: Z74.09 Status: Acute (7) Ischemic Stroke Status: Acute (8) DVT prophylaxis ICD Code: Z79.01 Status: Chronic Assessment and Plan Right femoral neck fracture s/p ORIF with multiple screws 07/20/16 PLAN: Toe-touch weightbearing Discharge to SNF when medically cleared. Patient is agitated at night. Currently not in restraints and without sitter at bedside and doing well Lovenox. [place] for pain No dressing change Cleared by ortho for DC DISPO: DC to SNF when arrangements done and off restraints/sitter x 24 hrs Problem Qualifiers (1) Dementia: Qualified Code: F03.90 - Dementia without behavioral disturbance, unspecified dementia type (2) Fall: Qualified Code: W19.XXXA - Fall, initial encounter (3) Fracture of femoral neck, closed: Qualified Code: S72.001A - Closed fracture of neck of right femur, initial encounter Mariola Lindsay MD Jul 29, 2016 10:08
[2016-07-29 12:00] VITALS: BP 113/72; PULSE 69; RESP 18; TEMP 98; O2SAT 93
[2016-07-29 16:00] VITALS: BP 124/74; PULSE 75; RESP 18; TEMP 97; O2SAT 94
[2016-07-29 20:00] VITALS: BP 122/74; PULSE 80; RESP 18; TEMP 96.4; O2SAT 95
[2016-07-29] MEDS: ATORVASTATIN 40 MG TAB PO SCH (20:11)
[2016-07-29] MEDS: MIRTAZAPINE 15 MG TAB PO SCH (20:11)
[2016-07-29] MEDS: ZOLPIDEM TARTRATE 5 MG TAB PO SCH (20:11)
[2016-07-29] MEDS: SENNOSIDES 8.6 MG TAB PO SCH (20:11)
[2016-07-30] VITALS: BP 126/70; PULSE 88; RESP 18; TEMP 97.4; O2SAT 93
[2016-07-30 04:00] VITALS: BP 126/70; PULSE 66; RESP 18; TEMP 97.9; O2SAT 94
[2016-07-30] MEDS: ENOXAPARIN SODIUM 30 MG/0.3 ML SYRINGE SQ SCH (04:04)
[2016-07-30 08:00] VITALS: BP 168/91; PULSE 84; RESP 18; TEMP 97; O2SAT 95
[2016-07-30] MEDS: METOPROLOL TARTRATE 25 MG TAB PO SCH (09:02)
[2016-07-30] MEDS: HYDROCHLOROTHIAZIDE 25 MG TAB PO SCH (09:02)
[2016-07-30] MEDS: ASPIRIN EC 81 MG TABEC PO SCH (09:02)
[2016-07-30] MEDS: MAGNESIUM HYDROXIDE SUSP 30 ML CUP PO SCH ×2 (09:02→20:47)
[2016-07-30] MEDS: QUEtiapine FUMARATE 25 MG TAB PO PRN ×3 (09:06→20:42)
[2016-07-30] MEDS: ACETAMINOPHEN/HYDROcodone 325 MG/5 MG TAB PO PRN ×3 (09:06→20:43)
--- NOTE | 2016-07-30 10:10 | HHI.PR ---
Subjective Remarks awake and alert, pleasant knows the reason of being in the hospital denies any pain seen with sitter- ate- pretty good, continent of urine Objective Vitals Vital Signs Date Time Temp Pulse Resp B/P Pulse Ox O2 Delivery O2 Flow Rate FiO2 07/30/16 08:00 97.0 84 18 168/91 95 07/30/16 04:00 97.9 66 18 126/70 94 07/30/16 00:00 97.4 88 18 126/70 93 07/29/16 23:37 18 07/29/16 20:00 96.4 80 18 122/74 95 07/29/16 19:06 Room Air 07/29/16 16:00 97.0 75 18 124/74 94 07/29/16 12:00 98.0 69 18 113/72 93 I/O 07/29/16 07/29/16 07/29/16 07/30/16 07/30/16 07/30/16 07:00 15:00 23:00 07:00 15:00 23:00 Intake Total 960 ml 240 ml 0 ml Output Total 0 ml Balance 960 ml 240 ml 0 ml Intake Oral 960 ml 240 ml 0 ml Output Urine Total 0 ml # Voids 2 2 1 # Bowel Movements 0 0 0 Imaging Last Impressions Hip X-Ray 07/20/16 0000 Signed Impressions: Service Date/Time: June 14:46 - CONCLUSION: 1. Good alignment of the hip fracture post fixation. Sotero Caal MD Chest X-Ray 07/19/16 1655 Signed Impressions: Service Date/Time: Tuesday, July 19, 2016 17:17 - CONCLUSION: 1. Hypoinflation with no acute cardiac pulmonary process. 2. Probable chronic rotator cuff injury on the left. Ab Alvarado MD Knee X-Ray 07/19/16 0000 Signed Impressions: Service Date/Time: Tuesday, July 19, 2016 17:20 - CONCLUSION: Mild osteoarthritic changes with no acute fracture or effusion. Ab Alvarado MD Objective Remarks awake and alert, oriented to person, ff commands, pleasantly confused anicteric no nuchal rigidity no rales or wheezes regular rhythm abdomen soft, nontender left LE- no calf tenderenss A/P Problem List: (1) Dementia ICD Code: F03.90 Status: Acute (2) Hypertension ICD Code: I10 Status: Chronic (3) Fall ICD Code: W19.XXXA Status: Acute (4) Impaired cognition ICD Code: R41.89 Status: Acute (5) Fracture of femoral neck, closed ICD Code: S72.009A Status: Acute (6) Impaired mobility and activities of daily living ICD Code: Z74.09 Status: Acute (7) Ischemic Stroke Status: Acute (8) DVT prophylaxis ICD Code: Z79.01 Status: Chronic Assessment and Plan Right femoral neck fracture s/p ORIF with multiple screws 07/20/16 - continue PT efforts Discharge to SNF when medically cleared. Lovenox. [place] for pain No dressing change Cleared by ortho for DC Hypertension- controlled Dementia- sitter Lovenox for DVT prophylaxis DC planning- SNF- needs to be without sitter x 24 hours Problem Qualifiers (1) Dementia: Qualified Code: F03.90 - Dementia without behavioral disturbance, unspecified dementia type (2) Fall: Qualified Code: W19.XXXA - Fall, initial encounter (3) Fracture of femoral neck, closed: Qualified Code: S72.001A - Closed fracture of neck of right femur, initial encounter Familia Fletcher MD Jul 30, 2016 10:10
[2016-07-30 12:00] VITALS: BP 122/71; PULSE 65; RESP 18; TEMP 96.8; O2SAT 95
[2016-07-30 16:00] VITALS: BP 114/66; PULSE 71; RESP 18; TEMP 98.2; O2SAT 94
[2016-07-30 20:00] VITALS: BP 114/63; PULSE 82; RESP 18; TEMP 96.8; O2SAT 95
[2016-07-30] MEDS: ZOLPIDEM TARTRATE 5 MG TAB PO SCH (20:42)
[2016-07-30] MEDS: MIRTAZAPINE 15 MG TAB PO SCH (20:42)
[2016-07-30] MEDS: SODIUM CHLORIDE 0.9% FLUSH 5 ML FLUSH IVF SCH (20:51)
[2016-07-30] MEDS: SENNOSIDES 8.6 MG TAB PO SCH (21:00)
[2016-07-30] MEDS: ATORVASTATIN 40 MG TAB PO SCH (21:00)
[2016-07-31 00:10] VITALS: BP 109/64; PULSE 88; RESP 20; TEMP 97.1; O2SAT 94
[2016-07-31] MEDS: ENOXAPARIN SODIUM 30 MG/0.3 ML SYRINGE SQ SCH (03:05)
[2016-07-31 08:00] VITALS: BP 127/71; PULSE 66; RESP 16; TEMP 95.6; O2SAT 96
[2016-07-31] MEDS: METOPROLOL TARTRATE 25 MG TAB PO SCH (08:28)
[2016-07-31] MEDS: MAGNESIUM HYDROXIDE SUSP 30 ML CUP PO SCH ×2 (08:28→20:00)
[2016-07-31] MEDS: ASPIRIN EC 81 MG TABEC PO SCH (08:28)
[2016-07-31] MEDS: HYDROCHLOROTHIAZIDE 25 MG TAB PO SCH (08:28)
[2016-07-31] MEDS: RAMIPRIL 5 MG CAP PO SCH ×2 (08:28→08:31)
[2016-07-31] MEDS: SODIUM CHLORIDE 0.9% FLUSH 5 ML FLUSH IVF SCH ×2 (08:29→20:00)
[2016-07-31] MEDS: QUEtiapine FUMARATE 25 MG TAB PO PRN ×3 (09:17→22:03)
--- NOTE | 2016-07-31 11:31 | HHI.FPPN ---
Subjective Remarks OFF SITTER SINCE THIS AM CALM, SITTING IN CHAIR, EATING PEANUTS D/W RN Objective Vitals Vital Signs Date Time Temp Pulse Resp B/P Pulse Ox O2 Delivery O2 Flow Rate FiO2 07/31/16 08:00 95.6 66 16 127/71 96 07/31/16 00:10 97.1 88 20 109/64 94 07/30/16 21:43 18 07/30/16 20:00 96.8 82 18 114/63 95 07/30/16 16:00 98.2 71 18 114/66 94 07/30/16 12:00 96.8 65 18 122/71 95 I/O 07/30/16 07/30/16 07/30/16 07/31/16 07/31/16 07/31/16 07:00 15:00 23:00 07:00 15:00 23:00 Intake Total 0 ml 720 ml 120 ml Output Total 0 ml 350 ml Balance 0 ml 720 ml 120 ml -350 ml Intake Oral 0 ml 720 ml 120 ml Output Urine Total 0 ml 350 ml # Voids 3 2 # Bowel Movements 0 2 Objective Remarks GENERAL: SKIN: Warm and dry. Incision c/d/i HEAD: Atraumatic. Normocephalic. EYES: Pupils equal and round. No scleral icterus. No injection or drainage. ENT: No nasal bleeding or discharge. Mucous membranes pink and moist. NECK: Trachea midline. No JVD. CARDIOVASCULAR: Regular rate and rhythm. RESPIRATORY: No accessory muscle use. Clear to auscultation. Breath sounds equal bilaterally. GASTROINTESTINAL: Abdomen soft, non-tender, nondistended. Hepatic and splenic margins not palpable. MUSCULOSKELETAL: Extremities without clubbing, cyanosis, or edema. No obvious deformities. NEUROLOGICAL: Awake and alert. No obvious cranial nerve deficits. Motor grossly within normal limits. 3 out of 5 muscle strength in the arms and legs. Normal speech. PSYCHIATRIC: confused, demented, follows simple commands Medications and IVs Current Medications Medications (Trade) Dose Ordered Sig/Taty Route Start Time Stop Time Status Last Admin (Tylenol) 650 mg Q4H PRN PO 07/19/16 18:30 (Narcan Inj) 0.4 mg UNSCH PRN IV 07/19/16 18:30 (Dilaudid Pf Inj) 0.2 mg Q4H PRN IV PUSH 07/19/16 19:00 07/20/16 09:49 (Ecotrin Ec) 81 mg DAILY PO 07/21/16 09:00 07/31/16 08:28 (Lipitor) 40 mg HS PO 07/20/16 21:00 07/29/16 20:11 (Hydrodiuril) 25 mg DAILY PO 07/21/16 09:00 07/31/16 08:28 (Lopressor) 25 mg DAILY PO 07/21/16 09:00 07/31/16 08:28 (Remeron) 15 mg HS PO 07/20/16 21:00 07/30/16 20:42 (Altace) 5 mg DAILY PO 07/21/16 09:00 07/31/16 08:31 (NS Flush) 2 ml UNSCH PRN IVF 07/20/16 14:30 (NS Flush) 2 ml BID IVF 07/20/16 21:00 07/24/16 21:04 (Lovenox Inj) 30 mg Q24H SQ 07/21/16 03:00 07/31/16 03:05 Miscellaneous Information UNSCH PRN XX 07/20/16 14:30 (Morphine Inj) 5 mg Q3H PRN IM 07/20/16 14:30 07/21/16 14:35 ([place] 5-325 Mg) 1 tab Q4H PRN PO 07/20/16 14:30 07/30/16 15:05 ([place] 5-325 Mg) 2 tab Q4H PRN PO 07/20/16 14:30 07/30/16 20:43 (Zofran Inj) 4 mg Q6H PRN IVP 07/20/16 14:30 (Mag-Al Plus Susp Liq) 30 ml Q6H PRN PO 07/20/16 14:30 (Milk Of Magnesia Liq) 30 ml BID PO 07/20/16 21:00 07/31/16 08:28 (Senokot) 17.2 mg HS PO 07/20/16 21:00 07/29/16 20:11 (Ativan Inj) 0.5 mg Q6H PRN IV PUSH 07/27/16 16:00 (Ambien) 5 mg HS PO 07/27/16 21:00 07/30/16 20:42 (SEROquel) 25 mg Q6H PRN PO 07/27/16 16:00 07/31/16 09:17 A/P Problem List: (1) Fracture of femoral neck, closed Status: Acute Plan: lovenox qd 3008 and narcotic RX in chart and ready for dc to SNF. OUT OF RESTRAINTS OF THIS AM JAYDE SCHEDULED HS OFF HALDOL PRN NOW. OFF RESTORIL ATIVAN PRN PSYCHOSIS SEROQUEL PRN ? VPA (2) Dementia Status: Acute (3) Hypertension Status: Chronic (4) Fall Status: Acute (5) Impaired cognition Status: Acute (6) DVT prophylaxis Status: Chronic (7) Impaired mobility and activities of daily living Status: Acute (8) Ischemic Stroke Status: Acute Plan: HYPOKALEMIA Problem Qualifiers (1) Fracture of femoral neck, closed: Qualified Code: S72.001A - Closed fracture of neck of right femur, initial encounter (2) Dementia: Qualified Code: F03.90 - Dementia without behavioral disturbance, unspecified dementia type (3) Fall: Qualified Code: W19.XXXA - Fall, initial encounter Ruddy Hubbard MD Jul 31, 2016 11:31
[2016-07-31 12:00] VITALS: BP 130/74; PULSE 70; RESP 18; TEMP 96.2; O2SAT 96
[2016-07-31 16:00] VITALS: BP 135/80; PULSE 82; RESP 19; TEMP 98.1; O2SAT 96
[2016-07-31] MEDS: ACETAMINOPHEN/HYDROcodone 325 MG/5 MG TAB PO PRN (19:00)
[2016-07-31] MEDS: ATORVASTATIN 40 MG TAB PO SCH (20:00)
[2016-07-31] MEDS: ZOLPIDEM TARTRATE 5 MG TAB PO SCH (20:00)
[2016-07-31] MEDS: SENNOSIDES 8.6 MG TAB PO SCH (20:00)
[2016-07-31] MEDS: MIRTAZAPINE 15 MG TAB PO SCH (20:00)
[2016-07-31 20:45] VITALS: BP 135/70; PULSE 85; RESP 17; TEMP 96.8; O2SAT 95
[2016-08-01] VITALS (9 sets, daily range): BP systolic 105–136; BP diastolic 60–77; PULSE 63–76; RESP 16–18; TEMP 96.2–97.9; O2SAT 94–97
[2016-08-01] MEDS: ENOXAPARIN SODIUM 30 MG/0.3 ML SYRINGE SQ SCH (03:00)
[2016-08-01] MEDS: SODIUM CHLORIDE 0.9% FLUSH 5 ML FLUSH IVF SCH ×2 (09:00→21:00)
[2016-08-01] MEDS: MAGNESIUM HYDROXIDE SUSP 30 ML CUP PO SCH ×2 (09:12→21:00)
[2016-08-01] MEDS: RAMIPRIL 5 MG CAP PO SCH (09:13)
[2016-08-01] MEDS: HYDROCHLOROTHIAZIDE 25 MG TAB PO SCH (09:13)
[2016-08-01] MEDS: METOPROLOL TARTRATE 25 MG TAB PO SCH (09:13)
[2016-08-01] MEDS: ASPIRIN EC 81 MG TABEC PO SCH (09:13)
[2016-08-01] MEDS: DIVALPROEX SODIUM SPRINKLES 125 MG CAP PO SCH ×2 (10:00→20:55)
--- NOTE | 2016-08-01 10:00 | HHI.FPPN ---
Subjective Remarks sitter placed again last night given seroquel prn w/o affect per nursing agitated and labile when questioned d/w RN's Objective Vitals Vital Signs Date Time Temp Pulse Resp B/P Pulse Ox O2 Delivery O2 Flow Rate FiO2 08/01/16 07:50 Room Air 08/01/16 04:53 97.9 63 17 121/67 97 08/01/16 00:50 96.6 69 17 114/68 94 07/31/16 20:45 96.8 85 17 135/70 95 07/31/16 16:00 98.1 82 19 135/80 96 07/31/16 12:00 96.2 70 18 130/74 96 I/O 07/31/16 07/31/16 07/31/16 08/01/16 08/01/16 08/01/16 07:00 15:00 23:00 07:00 15:00 23:00 Intake Total 680 ml 240 ml 60 ml Output Total 350 ml 500 ml 300 ml Balance -350 ml 180 ml 240 ml -240 ml Intake Oral 680 ml 240 ml 60 ml Output Urine Total 350 ml 500 ml 300 ml # Voids 0 # Bowel Movements 1 0 0 Objective Remarks GENERAL: SKIN: Warm and dry. Incision c/d/i HEAD: Atraumatic. Normocephalic. EYES: Pupils equal and round. No scleral icterus. No injection or drainage. ENT: No nasal bleeding or discharge. Mucous membranes pink and moist. NECK: Trachea midline. No JVD. CARDIOVASCULAR: Regular rate and rhythm. RESPIRATORY: No accessory muscle use. Clear to auscultation. Breath sounds equal bilaterally. GASTROINTESTINAL: Abdomen soft, non-tender, nondistended. Hepatic and splenic margins not palpable. MUSCULOSKELETAL: Extremities without clubbing, cyanosis, or edema. No obvious deformities. NEUROLOGICAL: Awake and alert. No obvious cranial nerve deficits. Motor grossly within normal limits. 3 out of 5 muscle strength in the arms and legs. Normal speech. PSYCHIATRIC: confused, demented, follows simple commands Medications and IVs Current Medications Medications (Trade) Dose Ordered Sig/Taty Route Start Time Stop Time Status Last Admin (Tylenol) 650 mg Q4H PRN PO 07/19/16 18:30 (Narcan Inj) 0.4 mg UNSCH PRN IV 07/19/16 18:30 (Dilaudid Pf Inj) 0.2 mg Q4H PRN IV PUSH 07/19/16 19:00 07/20/16 09:49 (Ecotrin Ec) 81 mg DAILY PO 07/21/16 09:00 08/01/16 09:13 (Lipitor) 40 mg HS PO 07/20/16 21:00 07/31/16 20:00 (Hydrodiuril) 25 mg DAILY PO 07/21/16 09:00 08/01/16 09:13 (Lopressor) 25 mg DAILY PO 07/21/16 09:00 08/01/16 09:13 (Remeron) 15 mg HS PO 07/20/16 21:00 07/31/16 20:00 (Altace) 5 mg DAILY PO 07/21/16 09:00 08/01/16 09:13 (NS Flush) 2 ml UNSCH PRN IVF 07/20/16 14:30 (NS Flush) 2 ml BID IVF 07/20/16 21:00 07/24/16 21:04 (Lovenox Inj) 30 mg Q24H SQ 07/21/16 03:00 08/01/16 03:00 Miscellaneous Information UNSCH PRN XX 07/20/16 14:30 (Morphine Inj) 5 mg Q3H PRN IM 07/20/16 14:30 07/21/16 14:35 ([place] 5-325 Mg) 1 tab Q4H PRN PO 07/20/16 14:30 07/30/16 15:05 ([place] 5-325 Mg) 2 tab Q4H PRN PO 07/20/16 14:30 07/31/16 19:00 (Zofran Inj) 4 mg Q6H PRN IVP 07/20/16 14:30 (Mag-Al Plus Susp Liq) 30 ml Q6H PRN PO 07/20/16 14:30 (Milk Of Magnesia Liq) 30 ml BID PO 07/20/16 21:00 08/01/16 09:12 (Senokot) 17.2 mg HS PO 07/20/16 21:00 07/31/16 20:00 (Ativan Inj) 0.5 mg Q6H PRN IV PUSH 07/27/16 16:00 (Ambien) 5 mg HS PO 07/27/16 21:00 07/31/16 20:00 (SEROquel) 25 mg Q6H PRN PO 07/27/16 16:00 07/31/16 22:03 A/P Problem List: (1) Fracture of femoral neck, closed Status: Acute Plan: OUT OF RESTRAINTS OF THIS AM JAYDE SCHEDULED HS OFF HALDOL PRN NOW. OFF RESTORIL ATIVAN PRN PSYCHOSIS SEROQUEL PRN CHECK DELIRIUM/DEMENTIA LABS START VPA BID SUN CHECK VPA LEVEL Lovenox qd 3008 and narcotic RX in chart and ready for dc to SNF. (2) Dementia Status: Acute (3) Hypertension Status: Chronic (4) Fall Status: Acute (5) Impaired cognition Status: Acute (6) DVT prophylaxis Status: Chronic (7) Impaired mobility and activities of daily living Status: Acute (8) Ischemic Stroke Status: Acute Plan: HYPOKALEMIA Problem Qualifiers (1) Fracture of femoral neck, closed: Qualified Code: S72.001A - Closed fracture of neck of right femur, initial encounter (2) Dementia: Qualified Code: F03.90 - Dementia without behavioral disturbance, unspecified dementia type (3) Fall: Qualified Code: W19.XXXA - Fall, initial encounter Ruddy Hubbard MD Aug 01, 2016 10:00
[2016-08-01 11:38] LABS: ALT (GPT) 66 U/L (12-78); ANION GAP 6 MEQ/L (5-15); AST (GOT) 39 U/L (15-37); BICARBONATE 33.6 MEQ/L (21.0-32.0); BLOOD UREA NITROGEN 27 MG/DL (7-18); CHLORIDE 102 MEQ/L (98-107); GLOMERULAR FILTRATION RATE 82 ML/MIN (>89); MAGNESIUM 2.1 MG/DL (1.5-2.5); POTASSIUM 3.6 MEQ/L (3.5-5.1); SODIUM (NA) 142 MEQ/L (136-145)
[2016-08-01] MEDS: QUEtiapine FUMARATE 25 MG TAB PO PRN ×2 (11:41→20:55)
[2016-08-01 12:04] LABS: ALKALINE PHOSPHATASE 129 U/L (45-117); TOTAL BILIRUBIN ADULT 0.5 MG/DL (0.2-1.0)
--- NOTE | 2016-08-01 16:36 | RADRPT ---
EXAM DATE/TIME: 08/01/2016 16:20 [facility] COMPARISON: No previous studies available for comparison. INDICATIONS : Fall and altered mental status. RADIATION DOSE: 38.73 CTDIvol (mGy) MEDICAL HISTORY : Stroke. Cerebrovascular disease. Dementia.Encephalopathy. SURGICAL HISTORY : None. ENCOUNTER: Subsequent ACUITY: 2 days PAIN SCALE: 5/10 LOCATION: cranial TECHNIQUE: Multiple contiguous axial images were obtained of the head. Using automated exposure control and adj ustment of the mA and/or kV according to patient size, radiation dose was kept as low as reasonably a chievable to obtain optimal diagnostic quality images. FINDINGS: The ventricles are enlarged with a prominent sulcal pattern compatible with atrophic change. No acute intracranial hemorrhage, acute cortical infarction, mass or midline shift is seen. Posterior fossa s tructures are unremarkable. Bone windows are unremarkable. CONCLUSION: 1. Atrophy as described above. No evidence of acute intracranial pathology. Sincere Malone MD on August 01, 2016 at 16:34 Board Certified Radiologist. This report was verified electronically.
--- NOTE | 2016-08-01 17:01 | RADRPT ---
EXAM DATE/TIME: 08/01/2016 16:06 [facility] COMPARISON: HIP RIGHT (AP&LAT 2/3VWS) WO AP PELVIS, July 20, 2016, 14:46. INDICATIONS : Fall. MEDICAL HISTORY : dementia. SURGICAL HISTORY : right hip surgery ENCOUNTER: Initial ACUITY: 1 day PAIN SCORE: Non-responsive. LOCATION: Bilateral hips and pelvis FINDINGS: The examination demonstrates 4 nails placed across patient's femoral neck fracture. The alignment pos t fixation is excellent. The remainder the osseous structures of the pelvis are intact. CONCLUSION: 1. Good alignment of the right hip post fixation. Sotero Caal MD on August 01, 2016 at 16:58 Board Certified Radiologist. This report was verified electronically.
[2016-08-01] MEDS: MIRTAZAPINE 15 MG TAB PO SCH (20:55)
[2016-08-01] MEDS: SENNOSIDES 8.6 MG TAB PO SCH (20:55)
[2016-08-01] MEDS: ZOLPIDEM TARTRATE 5 MG TAB PO SCH (20:55)
[2016-08-01] MEDS: ATORVASTATIN 40 MG TAB PO SCH (20:55)
[2016-08-02 03:30] VITALS: BP 155/77; PULSE 70; RESP 18; TEMP 96.1; O2SAT 98
[2016-08-02] MEDS: ENOXAPARIN SODIUM 30 MG/0.3 ML SYRINGE SQ SCH (03:30)
[2016-08-02 07:15] LABS: AUTOMATED NEUTROPHIL # 5.5 TH/MM3 (1.8-7.7); BASOPHIL # 0.1 TH/MM3 (0-0.2); BASOPHIL % 0.7 % (0.0-2.0); EOSINOPHIL # 0.4 TH/MM3 (0-0.4); EOSINOPHIL % 5.3 % (0.0-4.0); HEMATOCRIT 39.9 % (39.0-51.0); HEMO FLAGS DIFF FINAL; LYMPH % 14.8 % (9.0-44.0); LYMPHOCYTE # 1.2 TH/MM3 (1.0-4.8); MEAN CELL VOLUME 89.8 FL (80.0-100.0); MEAN CORPUSCULAR HEMOGLOBIN 30.6 PG (27.0-34.0); MEAN CORPUSCULAR HGB CONC 34.1 % (32.0-36.0); MONO % 9.6 % (0.0-8.0); NEUT % 69.6 % (16.0-70.0); PLATELET COUNT 326 TH/MM3 (150-450); RED BLOOD COUNT 4.44 MIL/MM3 (4.50-5.90); RED CELL DISTRIBUTION WIDTH 12.9 % (11.6-17.2); WHITE BLOOD COUNT 7.9 TH/MM3 (4.0-11.0)
[2016-08-02 07:30] VITALS: BP 120/78; PULSE 70; RESP 16; TEMP 96.5; O2SAT 98
[2016-08-02] MEDS: SODIUM CHLORIDE 0.9% FLUSH 5 ML FLUSH IVF SCH ×2 (09:00→20:54)
--- NOTE | 2016-08-02 09:49 | HHI.FPPN ---
Subjective Remarks STABLE NO NEURO CHANGES S/P FALL PT VERY ALERT AND HAS SITTER AGAIN AT [facility] Objective Vitals Vital Signs Date Time Temp Pulse Resp B/P Pulse Ox O2 Delivery O2 Flow Rate FiO2 08/02/16 03:30 96.1 70 18 155/77 98 08/01/16 23:30 97.0 72 17 136/72 97 08/01/16 21:25 96 Room Air 08/01/16 19:30 96.7 18 127/60 96 08/01/16 17:30 97.6 76 16 127/75 97 08/01/16 16:30 97.1 76 16 123/77 97 08/01/16 16:30 97.1 76 16 123/77 08/01/16 15:20 96.2 72 16 124/66 96 08/01/16 12:00 97.4 67 18 105/64 96 I/O 08/01/16 08/01/16 08/01/16 08/02/16 08/02/16 08/02/16 07:00 15:00 23:00 07:00 15:00 23:00 Intake Total 60 ml 600 ml 240 ml 240 ml Output Total 300 ml 300 ml 400 ml Balance -240 ml 600 ml -60 ml -160 ml Intake Oral 60 ml 600 ml 240 ml 240 ml IV Total 0 ml Output Urine Total 300 ml 300 ml 400 ml # Voids 3 # Bowel Movements 0 1 0 0 Result Diagram: 08/02/16 0555 08/01/16 1052 Objective Remarks GENERAL: SKIN: Warm and dry. Incision c/d/i HEAD: Atraumatic. Normocephalic. EYES: Pupils equal and round. No scleral icterus. No injection or drainage. ENT: No nasal bleeding or discharge. Mucous membranes pink and moist. NECK: Trachea midline. No JVD. CARDIOVASCULAR: Regular rate and rhythm. RESPIRATORY: No accessory muscle use. Clear to auscultation. Breath sounds equal bilaterally. GASTROINTESTINAL: Abdomen soft, non-tender, nondistended. Hepatic and splenic margins not palpable. MUSCULOSKELETAL: Extremities without clubbing, cyanosis, or edema. No obvious deformities. NEUROLOGICAL: Awake and alert. No obvious cranial nerve deficits. Motor grossly within normal limits. 3 out of 5 muscle strength in the arms and legs. Normal speech. PSYCHIATRIC: confused, demented, follows commands, easily agitated Medications and IVs Current Medications Medications (Trade) Dose Ordered Sig/Taty Route Start Time Stop Time Status Last Admin (Tylenol) 650 mg Q4H PRN PO 07/19/16 18:30 08/01/16 18:30 (Narcan Inj) 0.4 mg UNSCH PRN IV 07/19/16 18:30 (Dilaudid Pf Inj) 0.2 mg Q4H PRN IV PUSH 07/19/16 19:00 07/20/16 09:49 (Ecotrin Ec) 81 mg DAILY PO 07/21/16 09:00 08/01/16 09:13 (Lipitor) 40 mg HS PO 07/20/16 21:00 08/01/16 20:55 (Hydrodiuril) 25 mg DAILY PO 07/21/16 09:00 08/01/16 09:13 (Lopressor) 25 mg DAILY PO 07/21/16 09:00 08/01/16 09:13 (Remeron) 15 mg HS PO 07/20/16 21:00 08/01/16 20:55 (Altace) 5 mg DAILY PO 07/21/16 09:00 08/01/16 09:13 (NS Flush) 2 ml UNSCH PRN IVF 07/20/16 14:30 (NS Flush) 2 ml BID IVF 07/20/16 21:00 07/24/16 21:04 (Lovenox Inj) 30 mg Q24H SQ 07/21/16 03:00 08/02/16 03:30 Miscellaneous Information UNSCH PRN XX 07/20/16 14:30 (Morphine Inj) 5 mg Q3H PRN IM 07/20/16 14:30 07/21/16 14:35 ([place] 5-325 Mg) 1 tab Q4H PRN PO 07/20/16 14:30 07/30/16 15:05 ([place] 5-325 Mg) 2 tab Q4H PRN PO 07/20/16 14:30 07/31/16 19:00 (Zofran Inj) 4 mg Q6H PRN IVP 07/20/16 14:30 (Mag-Al Plus Susp Liq) 30 ml Q6H PRN PO 07/20/16 14:30 (Milk Of Magnesia Liq) 30 ml BID PO 07/20/16 21:00 08/01/16 21:00 (Senokot) 17.2 mg HS PO 07/20/16 21:00 08/01/16 20:55 (Ativan Inj) 0.5 mg Q6H PRN IV PUSH 07/27/16 16:00 (Ambien) 5 mg HS PO 07/27/16 21:00 08/01/16 20:55 (SEROquel) 25 mg Q6H PRN PO 07/27/16 16:00 08/01/16 20:55 (Depakote Sprinkles) 250 mg BID PO 08/01/16 10:00 08/01/16 20:55 A/P Problem List: (1) Fracture of femoral neck, closed Status: Acute Plan: SITTER AGAIN S/P FALL 08/01, NEG CT HEAD FOR HEAD INJURY. [facility] REQUESTS TO HIRE PRIVATE SITTER AND TO SNF [facility]. JAYDE SCHEDULED HS OFF HALDOL PRN NOW. OFF RESTORIL ATIVAN PRN PSYCHOSIS SEROQUEL PRN CHECK DELIRIUM/DEMENTIA LABS STARTED VPA BID SUN CHECK VPA LEVEL Lovenox qd 3008 and narcotic RX in chart and ready for dc to SNF. (2) Dementia Status: Acute (3) Hypertension Status: Chronic (4) Fall Status: Chronic (5) Impaired cognition Status: Acute (6) DVT prophylaxis Status: Chronic (7) Impaired mobility and activities of daily living Status: Acute (8) Ischemic Stroke Status: Acute Plan: [place]POK[place]EMIA Problem Qualifiers (1) Fracture of femoral neck, closed: Qualified Code: S72.001D - Closed fracture of neck of right femur with routine healing, subsequent encounter (2) Dementia: Qualified Code: F03.90 - Dementia without behavioral disturbance, unspecified dementia type (3) Fall: Qualified Code: W19.XXXD - Fall, subsequent encounter Ruddy Hubbard MD Aug 02, 2016 09:49
[2016-08-02 10:58] LABS: RAPID PLASMA REAGIN SCREEN NON-REACTIVE (NON-REACTVE)
[2016-08-02 11:30] VITALS: BP 114/71; PULSE 73; RESP 16; TEMP 96.6; O2SAT 96
[2016-08-02] MEDS: ASPIRIN EC 81 MG TABEC PO SCH (12:19)
[2016-08-02] MEDS: HYDROCHLOROTHIAZIDE 25 MG TAB PO SCH (12:19)
[2016-08-02] MEDS: MAGNESIUM HYDROXIDE SUSP 30 ML CUP PO SCH ×2 (12:19→20:54)
[2016-08-02] MEDS: DIVALPROEX SODIUM SPRINKLES 125 MG CAP PO SCH ×2 (12:19→20:53)
[2016-08-02] MEDS: RAMIPRIL 5 MG CAP PO SCH (12:19)
[2016-08-02] MEDS: METOPROLOL TARTRATE 25 MG TAB PO SCH (12:19)
[2016-08-02] MEDS: QUEtiapine FUMARATE 25 MG TAB PO PRN ×2 (14:48→20:53)
[2016-08-02 15:30] VITALS: BP 117/79; PULSE 79; RESP 16; TEMP 97.2; O2SAT 94
[2016-08-02 20:30] VITALS: BP 111/71; PULSE 92; RESP 17; TEMP 96.4; O2SAT 93
[2016-08-02] MEDS: ZOLPIDEM TARTRATE 5 MG TAB PO SCH (20:53)
[2016-08-02] MEDS: MIRTAZAPINE 15 MG TAB PO SCH (20:53)
[2016-08-02] MEDS: ATORVASTATIN 40 MG TAB PO SCH (20:53)
[2016-08-02] MEDS: SENNOSIDES 8.6 MG TAB PO SCH (20:53)
[2016-08-03 00:20] VITALS: BP 135/69; PULSE 71; RESP 16; TEMP 97; O2SAT 96
[2016-08-03] MEDS: ENOXAPARIN SODIUM 30 MG/0.3 ML SYRINGE SQ SCH (03:27)
[2016-08-03 08:03] VITALS: BP 121/73; PULSE 76; RESP 19; TEMP 96.4; O2SAT 95
[2016-08-03] MEDS: RAMIPRIL 5 MG CAP PO SCH (09:00)
[2016-08-03] MEDS: SODIUM CHLORIDE 0.9% FLUSH 5 ML FLUSH IVF SCH (09:00)
[2016-08-03] MEDS: MAGNESIUM HYDROXIDE SUSP 30 ML CUP PO SCH (09:00)
[2016-08-03] MEDS: DIVALPROEX SODIUM SPRINKLES 125 MG CAP PO SCH (09:19)
[2016-08-03] MEDS: ASPIRIN EC 81 MG TABEC PO SCH (09:19)
[2016-08-03] MEDS: METOPROLOL TARTRATE 25 MG TAB PO SCH (09:19)
[2016-08-03] MEDS: HYDROCHLOROTHIAZIDE 25 MG TAB PO SCH (09:19)
[2016-08-03 11:58] VITALS: BP 103/65; PULSE 68; RESP 19; TEMP 96.5; O2SAT 96
[2016-08-03 16:00] VITALS: BP 125/70; PULSE 68; RESP 19; TEMP 96.7; O2SAT 96
--- NOTE | 2016-08-08 13:38 | MD ---
cc: RUDDY SILVA MD ADMISSION DATE: 07/19/2016 DISCHARGE DATE: 08/03/2016 CONSULTATIONS Srikanth Mcnally MD PROCEDURES 07/20/2016 - Right hip fracture repair. ADMISSION DIAGNOSIS Fall and hip pain. DISCHARGE DIAGNOSIS 1. Right femoral neck fracture. 2. Dementia. 3. Hypertension. 4. Recurrent falls. 5. CVA. 6. Hypokalemia. HOSPITAL COURSE Jose Arndt is a 80-year-old male admitted for hip fracture. He underwent repair. Unfortunately his baseline is very confused and suffering from chronic dementia. Postoperatively he did well. However, he has been unable to follow commands and we have been unable to get him off of a one-to-one sitter. He fell on 08/01/[address] of the head was negative. He has had no further neurological focal deficits. We have been unable to place him in a SNF because of him being persistently agitated and the power of attorney law clerk has requested Hospice and to go back from whence she came at the [facility]. He has been calm and stable as long as the sitter is next to him. He tends to become restless and try to sit up and stand. He is going with [facility] and they will have full care and a sitter there. PHYSICAL EXAMINATION VITALS: Stable. CHEST: Clear. CARDIOVASCULAR: Regular rate and rhythm. ABDOMEN: Soft, nontender. EXTREMITIES: No edema. NEURO: No focal deficits. He is pleasant, calm and A&O x 1. He is very labile with further questioning. DISCHARGE MEDICATIONS 1. Lovenox with . 2. Depakote 250 t.i.d. 3. Medications otherwise in the chart. DISPOSITION Discharge to the [facility] with [facility]. I left a sitter with him. PROGNOSIS Poor. Ruddy Silva MD RP/SSB /3:31 PM /1:29 PM
== END 2016-08-03 17:53 | disposition hospice, home (50) | DRG 482 ==
LOC: NEPE 16:50 → NEDA 18:15 → HPAC 07-20 12:23 → N06A 07-20 21:58
PROVIDERS: ADMIT Family Medicine; ATTEND Family Medicine
PROC: 0QS604Z Reposition Right Upper Femur with Internal Fixation Device, Open Approach (ICD-10-PCS; principal; 2016-07-20 13:40)
DX: S72.041A Displaced fracture of base of neck of right femur, initial encounter for closed fracture (principal); F03.90 Unspecified dementia, unspecified severity, without behavioral disturbance, psychotic disturbance, mood disturbance, and anxiety; Z78.1 Physical restraint status; I10 Essential (primary) hypertension; H91.90 Unspecified hearing loss, unspecified ear; R26.9 Unspecified abnormalities of gait and mobility; R45.1 Restlessness and agitation; E87.6 Hypokalemia; Z86.73 Personal history of transient ischemic attack (TIA), and cerebral infarction without residual deficits; W19.XXXA Unspecified fall, initial encounter
CPT/HCPCS: 70450; 71010; 73502; 73521; 73560; 76000; 80048; 80053; 81001; 82140; 82306; 82607; 82746; 83735; 84132; 84443; 85014; 85018; 85025; 85610; 86592; 93005; 96374; 96375; 96376; C1713; C1769; J0131; J0690; J1170; J1580; J1630; J1650; J2060; J2175; J2250; J2270; J2405; J3010; J7030; J7120